=== PATIENT | male | born 2000 | race Caucasian/White ===

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

== ENCOUNTER → 2022-10-22 | Outpatient (CLI) | payer OTHER, SELFPAY ==
--- NOTE | 2022-10-22 11:57 | ECHOD_ITS ---
Reason For Study: VSD Procedure This was a 2D Doppler, Color Flow transthoracic echocardiogram. Exam performed in department. Left Ventricle Normal LV size. Small higher muscular ventricular septal defect measuring 0.3 to 0.3 cm. Unchanged from previous. Left ventricular systolic function is normal. The estimated ejection fraction is 60 %. No regional wall motion abnormalities noted. Right Ventricle Normal RV size. Normal systolic function. Atria Normal left atrium. Normal right atrium. Mitral Valve Normal mitral valve. Tricuspid Valve Normal tricuspid valve. Mild tricuspid valve insufficiency. Pulmonary artery systolic pressure is 20 mmHg. Aortic Valve Normal aortic valve. Trisinus/trileaflet aortic valve. Pulmonic Valve Normal pulmonic valve. Great Vessels Normal aortic root. The pulmonary artery is normal size. Normal inferior vena cava. Pericardium/Pleural No pericardial effusion. MMode/2D Measurements & Calculations LVIDd: 5.5 cm IVSd: 1.1 cm Ao root diam: 3.0 cm LVIDs: 3.9 cm LVPWd: 1.1 cm LA dimension: 4.5 cm RVDd: 3.9 cm FS: 29.1 % LAV(MOD-bp): 58.1 ml LVAd ap4: 40.4 cm2 SV(MOD-sp4): 79.4 ml LAV(MOD-bp) Indexed: 26.2 ml/m2 LVLd ap4: 8.8 cm LAV(MOD-sp2): 56.0 ml EDV(MOD-sp4): 149.2 ml LAV(MOD-sp4): 61.2 ml EDV(sp4-el): 157.0 ml LVAs ap4: 24.3 cm2 LVLs ap4: 7.0 cm ESV(MOD-sp4): 69.8 ml ESV(sp4-el): 71.6 ml EF(MOD-sp4): 53.2 % EF(sp4-el): 54.4 % SV(sp4-el): 85.4 ml LA A4 area: 20.6 cm2 RA A4 area: 17.9 cm2 Time Measurements MV dec time: 0.20 sec Doppler Measurements & Calculations MV E max enrike: 71.3 cm/sec Lat Peak E' Enrike: 22.2 cm/sec Med Peak E' Enrike: 11.6 cm/sec MV A max enrike: 61.4 cm/sec E/E' lat: 3.2 E/E' med: 6.1 MV E/A: 1.2 MV V2 max: 79.1 cm/sec MV P1/2t max enrike: 79.1 cm/sec Ao V2 max: 147.4 cm/sec MV max P.5 mmHg MV P1/2t: 68.5 msec Ao max P.7 mmHg MV V2 mean: 43.2 cm/sec Ao V2 mean: 101.7 cm/sec MV mean P.88 mmHg MV dec slope: 337.9 cm/sec2 Ao mean P.7 mmHg MV V2 VTI: 26.8 cm MVA(P1/2t): 3.2 cm2 Ao V2 VTI: 33.0 cm AV (velocity ratio): 0.78 LV V1 max: 128.0 cm/sec PA V2 max: 204.0 cm/sec TR max enrike: 201.4 cm/sec LV V1 max P.6 mmHg PA V2 mean: 118.0 cm/sec TR max P.2 mmHg LV V1 mean P.0 mmHg PA V2 VTI: 35.0 cm LV V1 mean: 95.6 cm/sec LV V1 VTI: 25.6 cm ECHO/Echo Complete Interpretation Summary Normal LV size. Left ventricular systolic function is normal. The estimated ejection fraction is 60 %. Small higher muscular ventricular septal defect measuring 0.3 to 0.3 cm. Unchan ged from previous. Pulmonary artery systolic pressure is 20 mmHg. Ordering Physician: Osei Vincent Referring Physician: Osei Vincent Performed By: Chema Graham RCS
== END | disposition home or self-care (01) ==
LOC: CVS 11:56
PROVIDERS: PCP Pediatrics; Referring Provider Nurse Practitioner Family; Visit Provider Nurse Practitioner Family
DX: Q21.0 Ventricular septal defect (principal)
CPT/HCPCS: 93306

== ENCOUNTER → 2024-12-30 | Outpatient (CLI) | payer OTHER, SELFPAY ==
[2024-12-30 11:13] LABS: Magnesium 2.1 mg/dL (1.5-2.2)
[2025-01-06 13:08] LABS: Dopamine, Pl 19.5 pg/mL (0.0-36.7); Epinephrine, Pl 52.1 pg/mL (0.0-55.4); Norepinephrine, Pl 357 pg/mL (115-524)
== END | disposition home or self-care (01) ==
LOC: LAB 09:58
PROVIDERS: PCP Nurse Practitioner Adult Health; Referring Provider Nurse Practitioner Family; Visit Provider Nurse Practitioner Family
DX: Q21.0 Ventricular septal defect (principal); R07.9 Chest pain, unspecified; R42 Dizziness and giddiness
CPT/HCPCS: 36415; 82088; 82384; 83036; 83735; 84244; 84439; 84443

== ENCOUNTER → 2025-01-02 | Outpatient (CLI) | payer OTHER, SELFPAY ==
--- OUTSIDE RECORDS SUMMARY | 2025-01-02 08:45 | XMS RPT_ITS | CCD ---
Author Organization [facility] Care Team Providers Care Dot Net Developer Name Role Phone Maicol Park MD Unavailable Cas Mendiola MD Primary Care Provider [phone] Cas Mendiola Primary Care Provider Dr. Beau Vicente Attending Provider [phone] Roof HEALTH SAFETY ENGINEER, HEALTH SAFETY ENGINEER-C Cas Zafar Attending Provider Marisol Covington Attending Unavailable Cas Mendiola Referring Unavailable Cas Mendiola Primary Care Unavailable Cas Mendiola Primary Care Unavailable Roof HEALTH SAFETY ENGINEER, Cas Zafar Attending Unavailable Cas Mendiola Primary Care Unavailable Beau Vicente Attending Unavailable Carlton HEALTH SAFETY ENGINEERCas Referring Unavailable Roof HEALTH SAFETY ENGINEER, aCs Zafar Attending Unavailable Cas Mendiola Primary Care Unavailable Cas Mendiola MD Primary Care Provider [phone] Navid FIELDS.Britton LOO Primary Care Provider BRITTON CAM Primary Care Unavailable SELF Referring Unavailable BRITTON CAM Referring Unavailable BRITTON CAM Primary Care Unavailable CAS MENDIOLA Attending Unavailable CAS MENDIOLA Primary Care Unavailable Cas Mendiola MD Primary Care Provider [phone] Cas Mendiola MD Primary Care Provider Dr. Cas Mendiola MD Referring Provider Roof HEALTH SAFETY ENGINEER-C, Cas Zafar Attending Provider [phone] BRITTON CAM Primary Care Unavailable LAMBERTO BERRIOS Attending Unavailable Allergies Allergy Classification Reported Allergen(s) Allergy Type Date of Onset Reaction(s) Facility (1 source) penicillin Drug Allergy 8 [facility] Work Phone: (1 source) PLANT POLLENS; Translations: [PLANT POLLENS] allergy to substance 8 hay fever [facility] Work Phone: (5 sources) Penicillins; Translations: [PENICILLINS] Propensity to adverse reactions 4 [facility] Work Phone: (2 sources) Penicillins Allergy to substance 2 [facility] (1 source) Penicillins Drug allergy (disorder) 3 [facility] (3 sources) Penicillins Propensity to adverse reactions 4 [facility] Work Phone: (2 sources) Penicillins Propensity to adverse reactions 4 [facility] Work Phone: Medications Current Medications Medication Drug Class(es) Dates Sig (Normalized) Sig (Original) cefdinir 300 mg oral capsule (2 sources) Cephalosporin Antibacterial Start: 10-19-2021 End: 10-29-2021 take 1 capsule by mouth twice daily cefdinir (OMNICEF) 300 mg capsule Indications: Acute maxillary sinusitis, recurrence not specified Take 1 capsule by mouth twice daily for 10 days. 20 capsule 0 10/19/2021 10/29/2021 Active Comment on above: Take 1 capsule by mo ut twice daily for 10 days. doxycycline hyclate 100 mg oral tablet (1 source) Tetracycline-class Drug Start: 02-01-2024 End: 02-08-2024 take 1 tablet by mouth twice daily doxycycline (VIBRA-TABS) 100 mg tablet Take 1 tablet by mouth two times a day for 7 days. 14 tablet 02/01/2024 02/08/2024 Active FLUoxetine 20 mg oral capsule (5 sources) Serotonin Reuptake Inhibitor Start: 12-14-2022 End: 12-30-2024 take 1 capsule by mouth once FLUoxetine (PROZAC) 20 mg capsule Indications: Generalized anxiety disorder Take 1 capsule by mouth every afternoon. 90 capsule 3 05/29/2023 Active Comment on above: Take 1 capsule by mo uth every afternoon. [place] (Nk) (1 source) Start: 12-30-2024 [place] (Nk) Active December 30, 2024 12:00am permethrin 50 mg/ml topical cream (1 source) Pyrethroid Start: 03-22-2023 End: 04-05-2023 permethrin (ELIMITE) 5 % cream Indications: Scabies Apply to the body once at bedtime and then rinse off/shower in the AM. Repeat a single treatment again in 2 weeks. 60 g 1 03/22/2023 04/05/2023 Active Comment on above: Apply to the body on ce at bedtime and then rinse off/shower in the AM. Repeat a single treatment again in 2 weeks. Completed/Discontinued Medications Medication Drug Class(es) Dates Sig (Normalized) Sig (Original) azelastine hydrochloride 0.137 mg/actuat / fluticasone propionate 0.05 mg/actuat metered dose nasal spray (2 sources) Corticosteroid, Histamine-1 Receptor Antagonist Start: 10-19-2021 take 1 spray(s) nasal route twice daily azelastine-flutic asone 137-50 mcg/spray spry Indications: Seasonal allergic rhinitis due to pollen Use 1 [place] in each nostril twice daily. 23 g 5 10/19/2021 Active Comment on above: Use 1 [place] in each nostril twice daily. brompheniramine maleate 0.4 mg/ml / dextromethorphan hydrobromide 2 mg/ml / pseudoephedrine hydrochloride 6 mg/ml oral solution (4 sources) alpha-Adrenergic Agonist, Uncompetitive B-xvlqdy-V-aspartat e Receptor Antagonist, Sigma-1 Agonist Start: 06-29-2018 End: 05-16-2022 take 5-10 mL by mouth every six hours as needed Brompheniramine-P seudoeph-DM (BROMFED DM) 2-30-10 mg/5 mL syrup Take 5-10 ml po q6h prn 120 mL 06/29/2018 05/16/2022 Discontinued Comment on above: Take 5-10 ml po q6h prn escitalopram 10 mg oral tablet (7 sources) Serotonin Reuptake Inhibitor Start: 11-16-2021 End: 03-22-2023 take 1 tablet by mouth once daily Escitalopram Oxalate 10 mg tablet Discontinued 10 mg PO DAILY November 16, 2021 12:00am December 14, 2022 11:35am Start: 07-11-2021 End: 10-19-2021 take 1 tablet by mouth once daily escitalopram oxalate (LEXAPRO) 10 mg tablet Indications: Anxious mood Take 1 tablet by mouth once daily. 90 tablet 2 10/19/2021 Active Comment on above: Take 1 tablet by seth th once daily. fluticasone propionate 0.05 mg/actuat metered dose nasal spray (7 sources) Corticosteroid Start: End: take 1 spray(s) nasal route once daily fluticasone (FLONASE ALLERGY RELIEF) 50 mcg/actuation nasal spray Use 1 [place] in each nostril once daily. 3 Each 3 08/25/2022 03/22/2023 Discontinued (Discontinued by another Health Care Provider) Start: 09-20-2021 End: 10-19-2021 take 1 spray(s) nasal route once daily fluticasone (FLONASE ALLERGY RELIEF) 50 mcg/actuation nasal spray Use 1 [place] in each nostril once daily. 3 Each 3 09/20/2021 10/19/2021 Discontinued (Course of therapy completed) Start: 11-16-2020 End: 12-30-2024 Fluticasone Propionate 50 mcg/actuation spray,suspension Discontinued 1 NMA INTRANASAL TWICE A DAY November 16, 2020 12:00am December 30, 2024 8:51am Start: 11-16-2020 Fluticasone Pr opionate Active 1 SPRAY INTRANASAL TWICE A DAY November 16, 2020 12:00am Start: 11-07-2020 End: 08-29-2021 take 1 spray(s) nasal route once daily fluticasone (FLONASE ALLERGY RELIEF) 50 mcg/actuation nasal spray Use 1 [place] in each nostril once daily. 3 Bottle 2 11/07/2020 08/29/2021 Discontinued Start: 10-13-2019 End: 11-07-2020 Fluticasone Furoate (FLONASE SENSIMIST) 27.5 mcg/actuation nasal spray Indications: Seasonal allergic rhinitis due to pollen 2 sprays to each nostril once daily for 1 month then decrease to one spray to each nostril. Treat for 3 months 10/13/2019 11/07/2020 Discontinued Comment on above: Use 1 [place] in each nostril once daily. ketotifen 0.25 mg/ml ophthalmic solution (4 sources) Histamine-1 Receptor Inhibitor Start: 0 End: 3 ketotifen fumarate (ZADITOR) 0.025 % (0.035 %) ophthalmic solution 1 drop to the affected eye every 12 hours as needed for pruritus 10/13/2019 05/16/2022 Discontinued Comment on above: 1 drop to the affect ed eye every 12 hours as needed for pruritus 12 hr loratadine 5 mg / pseudoephedrine sulfate 120 mg extended release oral tablet (8 sources) alpha-Adrenergic Agonist Start: 3 End: 3 take 1 tablet by mouth twice daily loratadine-pseudoeph edrine ER (CLARITIN-D 12 HOUR) 5-120 mg per tablet Take 1 tablet by mouth twice daily. 180 tablet 0 08/25/2022 03/22/2023 Discontinued (Discontinued by another Health Care Provider) Start: 09-20-2021 take 1 tablet by seth th twice daily loratadine-pseudoephedrine ER (CLARITIN- D 12 HOUR) 5-120 mg per tablet Take 1 tablet by mouth twice daily. 180 tablet 3 09/20/2021 Active Start: 11-16-2020 End: 12-30-2024 Loratadine-Pseudoephedrine ( Allergy Relief D12) 5-120 mg tablet extended release 12 hr Discontinued 1 {tbl} PO DAILY November 16, 2020 12:00am December 30, 2024 8:51am Start: 11-07-2020 End: 08-29-2021 take 1 tablet by mouth twice daily loratadine-pseudoephedrine ER (CLARITIN- D 12 HOUR) 5-120 mg per tablet Take 1 tablet by mouth twice daily. 180 tablet 3 11/07/2020 08/29/2021 Discontinued End: 11-07-2020 loratadine/pseudoephedrine ( CLARITIN-D 12 HOUR ORAL) Take by mouth once daily. 11/07/2020 Discontinued Comment on above: Take 1 tablet by seth th twice daily. nitroglycerin 0.02 mg/mg topical ointment (4 sources) Nitrate Vasodilator Start: 02-18-2014 End: 05-16-2022 nitroglycerin (NITRO-BID) 2 % ointment Indications: Raynaud's syndrome Use as directed. 30 g 0 02/18/2014 05/16/2022 Discontinued Comment on above: Use as directed. Problems Active Problems Problem Classification Problem Date Documented Da te Episodic/Chronic Administrative/social admission (1 source) Person with feared health complaint in whom no diagnosis is made; Translations: [Feared complaint without diagnosis] Onset: 12-28-2024 Episodic Anxiety disorders (4 sources) Anxiety; Translations: [Anxiety disorder, unspecified] Onset: 05-29-2023 Chronic Cardiac and circulatory congenital anomalies (12 sources) Ventricular septal defect; Translations: [Ventricular septal defect] Onset: 02-14-2005 02-14-2005 Chronic Conditions associated with dizziness or vertigo (2 sources) Dizziness; Translations: [Dizziness and giddiness] 12-30-2024 Episodic Diseases of mouth; excluding dental (1 source) Dry mouth, unspecified; Translations: [Dry mouth] Onset: 12-28-2024 Episodic Immunizations and screening for infectious disease (1 source) Patient encounter status; Translations: [Encounter for immunization] 03-24-2023 Episodic Nonspecific chest pain (2 sources) Chest pain; Translations: [Chest pain, unspecified] 12-30-2024 Episodic Other circulatory disease (8 sources) Raynaud's disease; Translations: [Raynaud's syndrome without gangrene] Onset: 09-30-2003 09-30-2003 Chronic Other infections; including parasitic (1 source) Infestation by Sarcoptes scabiei rakesh hominis; Translations: [Scabies] 03-24-2023 Episodic Other inflammatory condition of skin (8 sources) Psoriasis; Translations: [Psoriasis, unspecified] Onset: 12-04-2017 12-04-2017 Chronic Other upper respiratory disease (2 sources) Allergic rhinitis due to pollen; Translations: [Allergic rhinitis due to pollen] Chronic Other upper respiratory infections (2 sources) Acute maxillary sinusitis; Translations: [Acute maxillary sinusitis, unspecified] Episodic Sprains and strains (2 sources) Sprain of medial collateral ligament of knee; Translations: [Rupture of ulnar collateral ligament of thumb] Onset: 01-27-2018 01-27-2018 Episodic Past or Other Problems Problem Classification Problem Date Documented Date Episodic/Chronic Fracture of upper limb (8 sources) Closed Finn's fracture; Translations: [Finn's fracture, right hand, initial encounter for closed fracture] Onset: 02-09-2020 02-09-2020 Episodic Other bone disease and musculoskeletal deformities (4 sources) 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; Translations: [Juvenile osteochondrosis of tarsus, left ankle] Onset: 09-03-2015 Resolved: 12-04-2017 12-04-2017 Chronic Other non-traumatic joint disorders (8 sources) Decreased range of thumb movement; Translations: [Stiffness of right hand, not elsewhere classified] Onset: 02-09-2020 02-09-2020 Episodic Other screening for suspected conditions (not mental disorders or infectious disease) (3 sources) Encounter for screening for diseases of the blood and blood-forming organs and certain disorders involving the immune mechanism; Translations: [Encounter for screening for diabetes mellitus] Onset: 05-31-2023 Episodic Unclassified (1 source) Problem Results Test Name Value Interpretation Reference Range Facility HbA1c (Bld)Ordered By: Crystal Olivarez on 12-30-2024 HbA1c (Bld) [Mass fraction] 5.3 % NINF - 5.6 % [facility] CBC W Auto Differential pane l (Bld)on 12-28-2024 Basophils (Bld) [#/Vol] 0.03 10*3/uL Normal <0.11 [facility] Comment on above: Order Comment: Speci janis Type: BLOOD SPECIMEN Ordering Facility: [facility] Address: [address] [place] [address] Performed By: #### 5 7021-8 #### [facility] CLIA [id number] [address] [place] [address] [place] Basophils/100 WBC (Bld) 0.5 % Normal [facility] Comment on above: Order Comment: Brenti janis Type: BLOOD SPECIMEN Ordering Facility: [facility] Address: [address] [place] [address] Performed By: #### 5 7021-8 #### [facility] CLIA [id number] [address] [place] [address] [place] Differential cell count method Nom (Bld) Auto Normal [facility] Comment on above: Order Comment: Speci men Type: BLOOD SPECIMEN Ordering Facility: [facility] Address: [address] [place] [address] Performed By: #### 5 7021-8 #### [facility] CLIA [id number] [address] [place] [address] [place] Eosinophils (Bld) [#/Vol] 0.04 10*3/uL Normal <0.46 [facility] Comment on above: Order Comment: Speci men Type: BLOOD SPECIMEN Ordering Facility: [facility] Address: [address] [place] [address] Performed By: #### 5 7021-8 #### [facility] CLIA [id number] [address] [place] [address] [place] Eosinophils/100 WBC (Bld) 0.6 % Normal [facility] Comment on above: Order Comment: Speci men Type: BLOOD SPECIMEN Ordering Facility: [facility] Address: [address] [place] [address] Performed By: #### 5 7021-8 #### [facility] CLIA [id number] [address] [place] [address] [place] Erythrocyte distribution width (RBC) [Ratio] 11.8 % Normal 11.5-15.0 [facility] Comment on above: Order Comment: Speci men Type: BLOOD SPECIMEN Ordering Facility: [facility] Address: [address] [place] [address] Performed By: #### 5 7021-8 #### [facility] CLIA [id number] [address] [place] [address] [place] Hematocrit (Bld) [Volume fraction] 41.1 % Normal 39.0-51.0 [facility] Comment on above: Order Comment: Speci men Type: BLOOD SPECIMEN Ordering Facility: [facility] Address: [address] [place] [address] Performed By: #### 5 7021-8 #### [facility] CLIA [id number] [address] [place] [address] [place] Hemoglobin (Bld) [Mass/Vol] 14.3 g/dL Normal 13.0-17.0 [facility] Comment on above: Order Comment: Speci men Type: BLOOD SPECIMEN Ordering Facility: [facility] Address: [address] [place] [address] Performed By: #### 5 7021-8 #### [facility] CLIA [id number] [address] [place] [address] [place] Immature granulocytes (Bld) [#/Vol] 10*3/uL Normal <0.10 [facility] Comment on above: Order Comment: Speci men Type: BLOOD SPECIMEN Ordering Facility: [facility] Address: [address] [place] [address] Performed By: #### 5 7021-8 #### [facility] CLIA [id number] [address] [place] [address] [place] Immature granulocytes/100 WBC (Bld) 0.2 % Normal [facility] Comment on above: Order Comment: Speci men Type: BLOOD SPECIMEN Ordering Facility: [facility] Address: [address] [place] [address] Performed By: #### 5 7021-8 #### [facility] CLIA [id number] [address] [place] [address] [place] Lymphocytes (Bld) [#/Vol] 2.01 10*3/uL Normal 1.00-4.00 [facility] Comment on above: Order Comment: Speci men Type: BLOOD SPECIMEN Ordering Facility: [facility] Address: [address] [place] [address] Performed By: #### 5 7021-8 #### [facility] CLIA [id number] [address] [place] [address] [place] Lymphocytes/100 WBC (Bld) 30.5 % Normal [facility] Comment on above: Order Comment: Speci men Type: BLOOD SPECIMEN Ordering Facility: [facility] Address: [address] [place] [address] Performed By: #### 5 7021-8 #### [facility] CLIA [id number] [address] [place] [address] [place] MCH (RBC) [Entitic mass] 30.8 pg Normal 26.0-34.0 [facility] Comment on above: Order Comment: Speci men Type: BLOOD SPECIMEN Ordering Facility: [facility] Address: [address] [place] [address] Performed By: #### 5 7021-8 #### [facility] CLIA [id number] [address] [place] [address] [place] MCHC (RBC) [Mass/Vol] 34.8 g/dL Normal 30.5-36.0 [facility] Comment on above: Order Comment: Speci men Type: BLOOD SPECIMEN Ordering Facility: [facility] Address: [address] [place] [address] Performed By: #### 5 7021-8 #### [facility] CLIA [id number] [address] [place] [address] [place] MCV (RBC) [Entitic vol] 88.4 fL Normal 80.0-100.0 [facility] Comment on above: Order Comment: Speci men Type: BLOOD SPECIMEN Ordering Facility: [facility] Address: [address] [place] [address] Performed By: #### 5 7021-8 #### [facility] CLIA [id number] [address] [place] [address] [place] Monocytes (Bld) [#/Vol] 0.47 10*3/uL Normal <0.87 [facility] Comment on above: Order Comment: Speci men Type: BLOOD SPECIMEN Ordering Facility: [facility] Address: [address] [place] [address] Performed By: #### 5 7021-8 #### [facility] CLIA [id number] [address] [place] [address] [place] Monocytes/100 WBC (Bld) 7.1 % Normal [facility] Comment on above: Order Comment: Speci men Type: BLOOD SPECIMEN Ordering Facility: [facility] Address: [address] [place] [address] Performed By: #### 5 7021-8 #### [facility] CLIA [id number] [address] [place], [place] [address] [place] Neutrophils (Bld) [#/Vol] 4.02 10*3/uL Normal 1.45-7.50 [facility] Comment on above: Order Comment: Speci men Type: BLOOD SPECIMEN Ordering Facility: [facility] Address: [address] [place] [address] Performed By: #### 5 7021-8 #### [facility] CLIA [id number] [address] [place] [address] [place] Neutrophils/100 WBC (Bld) 61.1 % Normal [facility] Comment on above: Order Comment: Speci men Type: BLOOD SPECIMEN Ordering Facility: [facility] Address: [address] [place] [address] Performed By: #### 5 7021-8 #### [facility] CLIA [id number] [address] [place] [address] [place] Nucleated RBC (Bld) [#/Vol] 10*3/uL Normal <0.01 [facility] Comment on above: Order Comment: Speci men Type: BLOOD SPECIMEN Ordering Facility: [facility] Address: [address] [place] [address] Performed By: #### 5 7021-8 #### [facility] CLIA [id number] [address] [place] [address] [place] Nucleated RBC/100 WBC (Bld) [Ratio] 0.0 /100 WBC Normal [facility] Comment on above: Order Comment: Speci men Type: BLOOD SPECIMEN Ordering Facility: [facility] Address: [address] [place] [address] Performed By: #### 5 7021-8 #### [facility] CLIA [id number] [address] [place] [address] [place] Platelet mean volume (Bld) [Entitic vol] 9.8 fL Normal 9.0-12.7 [facility] Comment on above: Order Comment: Speci men Type: BLOOD SPECIMEN Ordering Facility: [facility] Address: [address] [place] [address] Performed By: #### 5 7021-8 #### [facility] CLIA [id number] [address] [place] [address] [place] Platelets (Bld) [#/Vol] 194 10*3/uL Normal 150-400 [facility] Comment on above: Order Comment: Speci men Type: BLOOD SPECIMEN Ordering Facility: [facility] Address: [address] [place] [address] Performed By: #### 5 7021-8 #### [facility] CLIA [id number] [address] [place] [address] [place] RBC (Bld) [#/Vol] 4.65 10*6/uL Normal 4.20-6.00 [facility] Comment on above: Order Comment: Speci men Type: BLOOD SPECIMEN Ordering Facility: [facility] Address: [address] [place] [address] Performed By: #### 5 7021-8 #### [facility] CLIA [id number] [address] [place] [address] [place] WBC (Bld) [#/Vol] 6.58 10*3/uL Normal 3.70-11.00 [facility] Comment on above: Order Comment: Speci men Type: BLOOD SPECIMEN Ordering Facility: [facility] Address: [address] [place] [address] Performed By: #### 5 7021-8 #### [facility] CLIA [id number] [address] [place] [address] [place] Comprehensive metabolic 2000 panelon 12-28-2024 Albumin [Mass/Vol] 4.8 g/dL Normal 3.9-4.9 [facility] Comment on above: Order Comment: Speci men Type: BLOOD SPECIMEN Ordering Facility: [facility] Address: [address] [place] [address] Performed By: #### 2 4323-8 #### [facility] CLIA [id number] [address] [place] [address] [place] ALP [Catalytic activity/Vol] 90 U/L Normal 38-113 [facility] Comment on above: Order Comment: Speci men Type: BLOOD SPECIMEN Ordering Facility: [facility] Address: [address] [place] [address] Performed By: #### 2 4323-8 #### [facility] CLIA [id number] [address] [place] [address] [place] ALT [Catalytic activity/Vol] 15 U/L Normal 10-54 [facility] Comment on above: Order Comment: Speci men Type: BLOOD SPECIMEN Ordering Facility: [facility] Address: [address] [place] [address] Performed By: #### 2 4323-8 #### [facility] CLIA [id number] [address] [place] [address] [place] Anion gap [Moles/Vol] 9 mmol/L Normal 8-15 [facility] Comment on above: Order Comment: Speci men Type: BLOOD SPECIMEN Ordering Facility: [facility] Address: [address] [place] [address] Performed By: #### 2 4323-8 #### [facility] CLIA [id number] [address] [place] [address] [place] AST [Catalytic activity/Vol] 20 U/L Normal 14-40 [facility] Comment on above: Order Comment: Speci men Type: BLOOD SPECIMEN Ordering Facility: [facility] Address: [address] [place] [address] Performed By: #### 2 4323-8 #### [facility] CLIA [id number] [address] [place] [address] [place] Bilirubin [Mass/Vol] 0.9 mg/dL Normal 0.2-1.3 [facility] Comment on above: Order Comment: Speci men Type: BLOOD SPECIMEN Ordering Facility: [facility] Address: [address] [place] [address] Performed By: #### 2 4323-8 #### [facility] CLIA [id number] [address] [place] [address] [place] Calcium [Mass/Vol] 9.5 mg/dL Normal 8.5-10.2 [facility] Comment on above: Order Comment: Speci men Type: BLOOD SPECIMEN [facility] [facility] Address: [address] [place] [address] Performed By: #### 2 4323-8 #### [facility] CLIA [id number] [address] [place] [address] [place] Chloride [Moles/Vol] 102 mmol/L Normal 98-107 [facility] Comment on above: Order Comment: Speci men Type: BLOOD SPECIMEN Ordering Facility: [facility] Address: [address] [place] [address] Performed By: #### 2 4323-8 #### [facility] CLIA [id number] [address] [place] [address] [place] CO2 [Moles/Vol] 27 mmol/L Normal 22-30 [facility] Comment on above: Order Comment: Speci men Type: BLOOD SPECIMEN Ordering Facility: [facility] Address: [address] [place] [address] Performed By: #### 2 4323-8 #### [facility] CLIA [id number] [address] [place] [address] [place] Creatinine [Mass/Vol] 0.96 mg/dL Normal 0.73-1.22 [facility] Comment on above: Order Comment: Speci men Type: BLOOD SPECIMEN Ordering Facility: [facility] Address: [address] [place] [address] Performed By: #### 2 4323-8 #### [facility] CLIA [id number] [address] [place] [address] [place] eGFRcr SerPlBld CKD-EPI 2020 114 mL/min/1.73m??? Normal >=60 [facility] Comment on above: Order Comment: Speci men Type: BLOOD SPECIMEN Ordering Facility: [facility] Address: [address] [place] [address] Result Comment: Kirstin mated Glomerular Filtration Rate (eGFR) is calculated using the 2020 CKD-EPI creatinine equation. This equation utilizes serum creatinine, sex, and age as parameters. The creatinine assay has traceable calibration to isotope dilution-mass spectrometry. Refer to KDIGO guidelines for clinical interpretation. In patients with unstable renal function, e.g. those with acute kidney injury, the eGFR may not accurately reflect actual GFR. Performed By: #### 2 4323-8 #### [facility] CLIA [id number] [address] [place], [place] [address] [place] Glucose [Mass/Vol] 99 mg/dL Normal 74-99 [facility] Comment on above: Order Comment: Barbara bruce Type: BLOOD SPECIMEN Ordering Facility: [facility] Address: [address] [place] [address] Result Comment: The [place] Diabetes Association (ADA) provides guidance for cutoff values for fasting glucose and random glucose. The ADA defines fasting as no caloric intake for at least 8 hours. Fasting plasma glucose results between 100 to 125 mg/dL indicate increased risk for diabetes (prediabetes). Fasting plasma glucose results greater than or equal to 126 mg/dL meet the criteria for diagnosis of diabetes. In the absence of unequivocal hyperglycemia, results should be confirmed by repeat testing. In a patient with classic symptoms of hyperglycemia or hyperglycemic crisis, random plasma glucose results greater than or equal to 200 mg/dL meet the criteria for diagnosis of diabetes. Reference: Standards of Medical Care in Diabetes 2016, [place] Diabetes Association. Diabetes Care. 2016.39(Suppl 1). Performed By: #### 2 4323-8 #### [facility] CLIA [id number] [address] [place] [address] [place] Potassium [Moles/Vol] 4.2 mmol/L Normal 3.7-5.1 [facility] Comment on above: Order Comment: Barbara bruce Type: BLOOD SPECIMEN Ordering Facility: [facility] Address: [address] [place] [address] Performed By: #### 2 4323-8 #### [facility] CLIA [id number] [address] [place], [place] [address] [place] Protein [Mass/Vol] 7.7 g/dL Normal 6.3-8.0 [facility] Comment on above: Order Comment: Barbara bruce Type: BLOOD SPECIMEN Ordering Facility: [facility] Address: [address] [place] [address] Performed By: #### 2 4323-8 #### [facility] CLIA [id number] [address] [place] [address] STATES OF [facility] Sodium [Moles/Vol] 138 mmol/L Normal 136-144 [facility] Comment on above: Order Comment: Speci men Type: BLOOD SPECIMEN Ordering Facility: [facility] Address: [address] [place] [address] Performed By: #### 2 4323-8 #### [facility] CLIA [id number] [address] [place] [address] [place] Urea nitrogen [Mass/Vol] 13 mg/dL Normal 9-24 [facility] Comment on above: Order Comment: Speci men Type: BLOOD SPECIMEN Ordering Facility: [facility] Address: [address] [place] [address] Performed By: #### 2 4323-8 #### [facility] CLIA [id number] [address] [place] [address] ED NOTEon 12-28-2024 ED NOTE HNO ID: [id number] Author: REHAN DREW PCNA Service: ? Author Type: Patient Care Manager English Type: ED Notes Filed: 12/29/2024 10:55 Note Text: Emergency Services: ED Call Back Questionnaire SERVICE DATE: 12/28/2024 Are you feeling better? No Any questions about discharge instructions and follow-up care? No Were you able to make a follow up appointment? Yes Do you have any further questions? No Is there anything that we could have done differently to improve your ED visit? No SIGNATURE: DAVE Hanna PATIENT NAME: Donell Sexton DATE: December 29, 2024 TIME: 10:[address] [facility] ED NOTE HNO ID: [id number] Author: STANISLAW SYED RN Service: ? Author Type: Registered Nurse Type: ED Notes Filed: 12/28/2024 06:43 Note Text: Called for patient from lobby, as per ed registration pt using restroom. [facility] ED PROV NOTEon 12-28-2024 ED PROV NOTE HNO ID: [id number] Author: LAMBERTO BERRIOS MD Service: ? Author Type: Physician Type: ED Provider Notes Filed: 12/28/2024 08:37 Note Text: ED Provider Note Patient Name: Donell Sexton : 2000 SERVICE DATE: 12/28/24 History Patient presents with: hand complaint Dry Mouth: C/O my hands feel tight and my mouth is dry I think I might have diabetes There is a very nice 23-year-old male who presents today with complaints of dry mouth shakiness and worried that he might have diabetes. He says this runs in his family. He said the symptoms for several months. Tells me that he is lost about 50 pounds over the last year without trying to. No other complaints right now. He has no fevers or chills. No chest pain. History of a VSD as a child with a lifelong heart murmur. No other complaints right now. Denies fevers or chills. Denies vomiting or diarrhea bright red blood per rectum or melena. Review of systems otherwise negative. PAST MEDICAL HISTORY Diagnosis Date - Concussion 2014 - Generalized anxiety disorder - Murmur - Raynaud's disease - Ventricular septal defect Dr. Mcbride PAST SURGICAL HISTORY Procedure Laterality Date - PAST SURGICAL HISTORY OF Right 01/14/2020 thumb - PAST SURGICAL HISTORY OF Right 08/22/2020 Right Thumb FAMILY HISTORY Problem Relation Age of Onset - other (bipolar type 5) Mother - Hypertension Father - Hypertension Maternal Grandfather - Diabetes Maternal Grandfather mggm - other (heart disease) Maternal Grandfather paternal side - Diabetes Maternal Uncle - Diabetes Maternal great-grandmother Social History[1] ALLERGIES Allergen Reactions - Penicillins Hives Review of Systems All other systems reviewed and are negative. Physical Exam Vitals [12/28/24 0652] BP Pulse Temp Temp src Resp SpO2 Weight Height 165/102 64 36.8 ?C (98.2 ?F) Oral 20 99 % 78.1 kg (172 lb 2.9 oz) 1.829 m (6') Physical Exam Vitals and nursing note reviewed. Constitutional: General: He is not in acute distress. Appearance: Normal appearance. He is not ill-appearing. HENT: Head: Normocephalic and atraumatic. Nose: Nose normal. Mouth/Throat: Mouth: Mucous membranes are moist. Eyes: Pupils: Pupils are equal, round, and reactive to light. Cardiovascular: Rate and Rhythm: Normal rate and regular rhythm. Heart sounds: Murmur heard. Pulmonary: Effort: Pulmonary effort is normal. Breath sounds: Normal breath sounds. Abdominal: General: Bowel sounds are normal. Palpations: Abdomen is soft. Tenderness: There is no abdominal tenderness. There is no guarding. Musculoskeletal: General: Normal range of motion. Cervical back: Normal range of motion and neck supple. Skin: General: Skin is warm and dry. Capillary Refill: Capillary refill takes less than 2 seconds. Neurological: General: No focal deficit present. Mental Status: He is alert. Psychiatric: Mood and Affect: Mood normal. Diagnostic Testing ED Labs Ordered and Reviewed GLUCOSE, BLOOD (POC) - Abnormal; Notable for the following components: Result Value Ref Range Glucose, Point of Care 105 (*) 74 - 99 mg/dL All other components within normal limits COMPREHENSIVE METABOLIC PANEL COMPLETE BLOOD COUNT AND DIFFERENTIAL Procedures ED Course / Clinical Impression ED Course as of 12/28/24 0838 Lamberto Berrios's Documentation Mon Dec 28, 2024 0836 Glucose, Point of Care(!): 105 Clinical Impressions as of 12/28/24 0838 Dry mouth Feared complaint without diagnosis MDM / Disposition / Plan Patient denies using drugs or alcohol. He is well-appearing at this time. He did ask that we check some blood work on him. Initial fingerstick blood glucose was 105. Will check a CBC and base metabolic panel as long as these look okay the patient certainly is well clinically and I do not think that there are any acute emergent medical conditions. Laboratory studies are unremarkable. He is discharged home with reassurance rest fluids. Not sure what the cause of his symptoms were and it may be anxiety related. Certainly there are no metabolic abnormalities or any indication that there is an acute emergent condition. He can follow-up with his family doctor as needed and return if problems of any kind. SIGNATURE: Lamberto Berrios MD, LAMBERTO GARCIA 12/28/24 0837 [1] Social History Tobacco Use - Smoking status: Never - Smokeless tobacco: Never Vaping Use - Vaping status: Never Used Substance and Sexual Activity - Alcohol use: Yes Comment: social - Drug use: No - Sexual activity: Never Normal [facility] 02-01-2024 CNOV Office Visit (UCWSTR ) DONELL SEXTON ([id number]) 2 M Date Time Provider Department 02/01/24 8:15 AM TRUPTI ZUÑIGA [facility] During your visit today, we recorded the following information about you: Temperature Pulse Respiration Blood pressure 97.6 degrees 69/minute 16/minute 128/84 Weight 104.9 kg Trupti Zuñiga PA 02/01/2024 8:20 AM Signed This note was created using Huaat. Subjective Donell Sexton is a 23 year old male. HPI 23-year-old male presents for nasal congestion, sinus pressure, sinus pain. Patient states he has been having sinus symptoms for about 3 weeks. He denies any fevers. No cough. No chest pain or shortness of breath. No sick contacts. States he is concerned it may be a sinus infection. He has been using Claritin and Daniela with minimal improvement. PAST MEDICAL HISTORY Diagnosis Date 2014 Generalized anxiety disorder Murmur Raynaud's disease Ventricular septal defect Dr. Mcbride PAST SURGICAL HISTORY Procedure Laterality Date PAST SURGICAL HISTORY OF Right 01/14/2020 thumb PAST SURGICAL HISTORY OF Right 08/22/2020 Right Thumb ALLERGIES Penicillins MEDICATIONS FLUoxetine (PROZAC) 20 mg capsule Take 1 capsule by mouth every afternoon. doxycycline (VIBRA-TABS) 100 mg tablet Take 1 tablet by mouth two times a day for 7 days. FAMILY HISTORY Problem Relation Age of Onset other (bipolar type 5) Mother Hypertension Father Hypertension Maternal Grandfather Diabetes Maternal Grandfather mggm other (heart disease) Maternal Grandfather paternal side Diabetes Maternal Uncle Diabetes Maternal great-grandmother Social History Tobacco Use Smoking status: Never Smokeless tobacco: Never Vaping Use Vaping status: Never Used Substance Use Topics Alcohol use: Yes Comment: social Drug use: No Review of Systems Constitutional: Negative for chills and fever. HENT: Positive for congestion, sinus pressure and sinus pain. Negative for sore throat. Respiratory: Negative for cough and shortness of breath. Gastrointestinal: Negative for diarrhea and vomiting. Neurological: Positive for headaches. Objective BP 128/84 Pulse 69 Temp 36.4 ?C (97.6 ?F) (Tympanic) Resp 16 Wt 104.9 kg (231 lb 4.2 oz) SpO2 98% BMI 31.36 kg/m? Physical Exam Vitals and nursing note reviewed. Constitutional: General: He is not in acute distress. Appearance: Normal appearance. He is not toxic-appearing. HENT: Right Ear: Tympanic membrane and ear canal normal. Left Ear: Tympanic membrane and ear canal normal. Nose: Mucosal edema present. Right Sinus: Maxillary sinus tenderness and frontal sinus tenderness present. Left Sinus: Maxillary sinus tenderness and frontal sinus tenderness present. Mouth/Throat: Mouth: Mucous membranes are moist. Eyes: Conjunctiva/sclera: Conjunctivae normal. Cardiovascular: Rate and Rhythm: Normal rate and regular rhythm. Pulmonary: Effort: Pulmonary effort is normal. Breath sounds: Normal breath sounds. Skin: General: Skin is warm and dry. Neurological: Mental Status: He is alert. Assessment and Plan ASSESSMENT/PLAN: 1. Acute non-recurrent sinusitis, unspecified location - ICD9: 461.9, ICD10: J01.90 - Will begin treatment with Doxycycline - The patient should also be given OTC decongestants prn for the first 5-7 days of treatment. - Supportive care with plenty of fluids, rest, and analgesia prn. Diagnosis and treatment plan were discussed and questions were answered to the patient's satisfaction. Pt acknowledged understanding of concepts and follow up plan. Specific signs and symptoms that would indicate the need for higher level of care were discussed in detail warranting prompt ER evaluation. JANETTE Shields Referring Provider: SELF [200] Allergies As of Date: 02/01/2024 Noted Allergy Reaction PENICILLINS 09/30/2003 4 - Hives Date Reviewed: 02/01/2024 Reviewed by: Kirstin Sykes LPN - Fully Assessed Reason for Visit: Sinus Problem [99] Cmt: Sinus congestion x 3-4 weeks Primary Visit Diagnosis:Acute non-recurrent sinusitis, unspecified location [J01.90] Order(s):doxycycline (VIBRA-TABS) 100 mg tabletTake 1 tablet by mouth two times a day for 7 days.Disp: 14 tabletRfl: 0 Prescriptions as of 02/01/2024 - doxycycline (VIBRA-TABS) 100 mg tablet Take 1 tablet by mouth two times a day for 7 days. - FLUoxetine (PROZAC) 20 mg capsule Take 1 capsule by mouth every afternoon. Problem List As Of Date 02/01/2024 Noted Resolved RAYNAUD'S SYNDROME [I73.00] 09/30/2003 VENTRICULAR SEPT DEFECT [Q21.0] 02/14/2005 Sever's apophysitis, left [M92.62] 09/03/2015 12/04/2017 Psoriasis [L40.9] 12/04/2017 Closed Finn's fracture of right thumb [S62.2*02/09/2020 Decreased range of motion of right thumb [M25.6*02/09/2020 Generalized anxiety disorder [F41.1] (more content not included)... Normal [facility] CBC panel Auto (Bld)on 05-31 Erythrocyte distribution width (RBC) [Ratio] 11.9 % Normal 11.5-15.0 [facility] Comment on above: Order Comment: Speci men Type: BLOOD SPECIMEN Ordering Facility: [facility] Address: [address] [place] [address] Performed By: #### 5 8410-2 #### [facility] CLIA [id number] [address] [place] [address] [place] Hematocrit (Bld) [Volume fraction] 43.0 % Normal 39.0-51.0 [facility] Comment on above: Order Comment: Speci men Type: BLOOD SPECIMEN Ordering Facility: [facility] Address: [address] [place] [address] Performed By: #### 5 8410-2 #### [facility] CLIA [id number] [address] [place] [address] [place] Hemoglobin (Bld) [Mass/Vol] 14.5 g/dL Normal 13.0-17.0 [facility] Comment on above: Order Comment: Speci men Type: BLOOD SPECIMEN Ordering Facility: [facility] Address: [address] [place] [address] Performed By: #### 5 8410-2 #### [facility] CLIA [id number] [address] [place] [address] [place] MCH (RBC) [Entitic mass] 29.7 pg Normal 26.0-34.0 [facility] Comment on above: Order Comment: Speci men Type: BLOOD SPECIMEN Ordering Facility: [facility] Address: [address] [place] [address] Performed By: #### 5 8410-2 #### [facility] CLIA [id number] [address] [place] [address] [place] MCHC (RBC) [Mass/Vol] 33.7 g/dL Normal 30.5-36.0 [facility] Comment on above: Order Comment: Speci men Type: BLOOD SPECIMEN Ordering Facility: [facility] Address: [address] [place] [address] Performed By: #### 5 8410-2 #### [facility] CLIA [id number] [address] [place] [address] [place] MCV (RBC) [Entitic vol] 87.9 fL Normal 80.0-100.0 [facility] Comment on above: Order Comment: Speci men Type: BLOOD SPECIMEN Ordering Facility: [facility] Address: [address] [place] [address] Performed By: #### 5 8410-2 #### [facility] CLIA [id number] [address] [place] [address] [place] Nucleated RBC (Bld) [#/Vol] 10*3/uL Normal <0.01 [facility] Comment on above: Order Comment: Speci men Type: BLOOD SPECIMEN Ordering Facility: [facility] Address: [address] [place] [address] Performed By: #### 5 8410-2 #### [facility] CLIA [id number] [address] [place] [address] [place] Platelet mean volume (Bld) [Entitic vol] 10.4 fL Normal 9.0-12.7 [facility] Comment on above: Order Comment: Speci men Type: BLOOD SPECIMEN Ordering Facility: [facility] Address: [address] [place] [address] Performed By: #### 5 8410-2 #### [facility] CLIA [id number] [address] [place] [address] [place] Platelets (Bld) [#/Vol] 248 10*3/uL Normal 150-400 [facility] Comment on above: Order Comment: Speci men Type: BLOOD SPECIMEN Ordering Facility: [facility] Address: [address] [place] [address] Performed By: #### 5 8410-2 #### [facility] CLIA [id number] [address] [place] [address] [place] RBC (Bld) [#/Vol] 4.89 10*6/uL Normal 4.20-6.00 [facility] Comment on above: Order Comment: Speci men Type: BLOOD SPECIMEN Ordering Facility: [facility] Address: [address] [place] [address] Performed By: #### 5 8410-2 #### [facility] CLIA [id number] [address] [place] [address] [place] WBC (Bld) [#/Vol] 4.68 10*3/uL Normal 3.70-11.00 [facility] Comment on above: Order Comment: Speci men Type: BLOOD SPECIMEN Ordering Facility: [facility] Address: [address] [place] [address] Performed By: #### 5 8410-2 #### [facility] CLIA [id number] [address] [place] [address] [place] Comprehensive metabolic 2000 panelon 05-31-2023 Albumin [Mass/Vol] 4.5 g/dL Normal 3.9-4.9 [facility] Comment on above: Order Comment: Speci men Type: BLOOD SPECIMEN Ordering Facility: [facility] Address: [address] [place] [address] Performed By: #### 2 4331-1, 96439-2 #### [facility] CLIA [id number] [address] [place] [address] [place] ALP [Catalytic activity/Vol] 102 U/L Normal 38-113 [facility] Comment on above: Order Comment: Speci men Type: BLOOD SPECIMEN Ordering Facility: [facility] Address: [address] [place] [address] Performed By: #### 2 4331-1, #### [facility] CLIA [id number] [address] [place] [address] [place] ALT [Catalytic activity/Vol] 36 U/L Normal 10-54 [facility] Comment on above: Order Comment: Speci men Type: BLOOD SPECIMEN Ordering Facility: [facility] Address: [address] [place] [address] Performed By: #### 2 4331-1, #### [facility] CLIA [id number] [address] [place] [address] [place] Anion gap [Moles/Vol] 9 mmol/L Normal 9-18 [facility] Comment on above: Order Comment: Speci men Type: BLOOD SPECIMEN Ordering Facility: [facility] Address: [address] [place] [address] Performed By: #### 2 4331-1, 58948-2 #### [facility] CLIA [id number] [address] [place] [address] [place] AST [Catalytic activity/Vol] 30 U/L Normal 14-40 [facility] Comment on above: Order Comment: Speci men Type: BLOOD SPECIMEN Ordering Facility: [facility] Address: [address] [place] [address] Performed By: #### 2 4331-1, 20649-2 #### [facility] CLIA [id number] [address] [place] [address] [place] Bilirubin [Mass/Vol] 1.2 mg/dL Normal 0.2-1.3 [facility] Comment on above: Order Comment: Speci men Type: BLOOD SPECIMEN Ordering Facility: [facility] Address: [address] [place] [address] Performed By: #### 2 4331-1, #### [facility] CLIA [id number] [address] [place] [address] [place] Calcium [Mass/Vol] 9.5 mg/dL Normal 8.5-10.2 [facility] Comment on above: Order Comment: Speci men Type: BLOOD SPECIMEN Ordering Facility: [facility] Address: [address] [place] [address] Performed By: #### 2 4331-1, #### [facility] CLIA [id number] [address] [place] [address] [place] Chloride [Moles/Vol] 104 mmol/L Normal 97-105 [facility] Comment on above: Order Comment: Speci men Type: BLOOD SPECIMEN Ordering Facility: [facility] Address: [address] [place] [address] Performed By: #### 2 4331-1, #### [facility] CLIA [id number] [address] [place] [id number] [place] CO2 [Moles/Vol] 27 mmol/L Normal 22-30 [facility] Comment on above: Order Comment: Speci men Type: BLOOD SPECIMEN Ordering Facility: [facility] Address: [address] [place] [address] Performed By: #### 2 4331-1, 07981-3 #### [facility] CLIA [id number] [address] [place] [address] [place] Creatinine [Mass/Vol] 0.90 mg/dL Normal 0.73-1.22 [facility] Comment on above: Order Comment: Barbara bruce Type: BLOOD SPECIMEN Ordering Facility: [facility] Address: [address] [place] [address] Performed By: #### 2 4331-1, 72001-4 #### [facility] CLIA [id number] [facility] [place] [address] [facility] [place] Creatinine and Glomerular filtration rate.predicted panel (S/P/Bld) 125 mL/min/1.73m??? Normal >=60 [facility] Comment on above: Order Comment: Barbara bruce Type: BLOOD SPECIMEN Ordering Facility: [facility] Address: [address] [place] [address] Result Comment: Kirstin mated Glomerular Filtration Rate (eGFR) is calculated using the 2020 CKD-EPI creatinine equation. This equation utilizes serum creatinine, sex, and age as parameters. The creatinine assay has traceable calibration to isotope dilution-mass spectrometry. Refer to KDIGO guidelines for clinical interpretation. In patients with unstable renal function, e.g. those with acute kidney injury, the eGFR may not accurately reflect actual GFR. Performed By: #### 2 4331-1, 25197-5 #### [facility] CLIA [id number] [address] [place] [address] [place] Glucose [Mass/Vol] 115 mg/dL High 74-99 [facility] Comment on above: Order Comment: Barbara bruce Type: BLOOD SPECIMEN Ordering Facility: [facility] Address: [address] [place] [address] Result Comment: The [place] [employer] (ADA) provides guidance for cutoff values for fasting glucose and random glucose. The ADA defines fasting as no caloric intake for at least 8 hours. Fasting plasma glucose results between 100 to 125 mg/dL indicate increased risk for diabetes (prediabetes). Fasting plasma glucose results greater than or equal to 126 mg/dL meet the criteria for diagnosis of diabetes. In the absence of unequivocal hyperglycemia, results should be confirmed by repeat testing. In a patient with classic symptoms of hyperglycemia or hyperglycemic crisis, random plasma glucose results greater than or equal to 200 mg/dL meet the criteria for diagnosis of diabetes. Reference: Standards of Medical Care in Diabetes 2016, [place] [employer]. Diabetes Care. 2016.39(Suppl 1). Performed By: #### 2 4331-1, #### [facility] CLIA [id number] [address] [place] [address] [place] Potassium [Moles/Vol] 4.3 mmol/L Normal 3.7-5.1 [facility] Comment on above: Order Comment: Speci men Type: BLOOD SPECIMEN Ordering Facility: [facility] Address: [address] [place] [address] Performed By: #### 2 433-, #### [facility] CLIA [id number] [address] [place] [address] [place] Protein [Mass/Vol] 7.1 g/dL Normal 6.3-8.0 [facility] Comment on above: Order Comment: Speci men Type: BLOOD SPECIMEN Ordering Facility: [facility] Address: [address] [place] [address] Performed By: #### 2 433-, #### [facility] CLIA [id number] [address] [place] [address] [place] Sodium [Moles/Vol] 140 mmol/L Normal 136-144 [facility] Comment on above: Order Comment: Speci men Type: BLOOD SPECIMEN Ordering Facility: [facility] Address: [address] [place] [address] Performed By: #### 2 433-, #### [facility] CLIA [id number] [address] [place] [id number] [place] Urea nitrogen [Mass/Vol] 9 mg/dL Normal 9-24 [facility] Comment on above: Order Comment: Speci men Type: BLOOD SPECIMEN Ordering Facility: [facility] Address: [address] [place] [address] Performed By: #### 2 4331-1, 71668-7 #### [facility] CLIA [id number] [address] [place] [address] [place] Lipid 1996 panelon 4 Cholesterol [Mass/Vol] 166 mg/dL Normal <200 [facility] Comment on above: Order Comment: Speci men Type: BLOOD SPECIMEN Ordering Facility: [facility] Address: [address] [place] [address] Result Comment: <200 mg/dL, Desirable 200-239 mg/dL, Borderline high >239 mg/dL, High Performed By: #### 2 4331-1, #### [facility] CLIA [id number] [address] [place] [address] [place] Cholesterol in HDL [Mass/Vol] 36 mg/dL Low >39 [facility] Comment on above: Order Comment: Barbara bruce Type: BLOOD SPECIMEN Ordering Facility: [facility] Address: [address] [place] [address] Result Comment: 40-5 9 mg/dL, Acceptable >59 mg/dL, High: Negative risk factor for coronary heart disease <40 mg/dL, Low: Positive risk factor for coronary heart disease Performed By: #### 2 4331-1, 85123-0 #### [facility] CLIA [id number] [address] [place] [address] [place] Cholesterol in LDL [Mass/Vol] 113 mg/dL High <100 [facility] Comment on above: Order Comment: Brenti men Type: BLOOD SPECIMEN Ordering Facility: [facility] Address: [address] [place] [address] Result Comment: <100 mg/dL, Optimal 100-129 mg/dL, Near optimal/above optimal 130-159 mg/dL, Borderline high 160-189 mg/dL, High >189 mg/dL, Very high Secondary prevention optimal LDL Cholesterol levels are recommended to be < 70 mg/dL Performed By: #### 2 4331-1, 60359-7 #### [facility] CLIA [id number] [address] [place] [address] [place] Cholesterol in LDL/Cholesterol in HDL [Mass ratio] 3.14 {ratio} High <2.54 [facility] Comment on above: Order Comment: Barbara bruce Type: BLOOD SPECIMEN Ordering Facility: [facility] Address: [address] [place] [address] Result Comment: Refe rence: 1. National Cholesterol Education Program ATP III Guideline At-A-Glance Quick Desk Reference: National Heart, Lung, and Blood [place]. National Institutes of Health. 2001: NIH Publication No. 01-3305. 2. An International Atherosclerosis Society position paper: global recommendations for the management of dyslipidemia: executive summary, Atherosclerosis. 2014: 232(2):410-413. Cut Points from the Lipid Research Clinic's Prevalence Study for ages 20 to 24 years can be located in the following reference: Expert Panel on Integrated Guidelines for Cardiovascular Health and Risk Reduction in Children and Adolescents: National Heart, Lung and Blood [place]. Pediatrics. 2011:128(Suppl 5):C872-511. Performed By: #### 2 4331-1, 57429-7 #### [facility] CLIA [id number] [address] [place] [address] [place] Cholesterol in VLDL [Mass/Vol] 17 mg/dL Normal <30 [facility] Comment on above: Order Comment: Barbara bruce Type: BLOOD SPECIMEN Ordering Facility: [facility] Address: [address] [place] [address] Performed By: #### 2 4331-1, 46441-8 #### [facility] IA [id number] [address] [place] [address] [place] Cholesterol non HDL [Mass/Vol] 130 mg/dL High <130 [facility] Comment on above: Order Comment: Barbara bruce Type: BLOOD SPECIMEN Ordering Facility: [facility] Address: [address] [place] [address] Result Comment: <130 mg/dL, Optimal 130-159 mg/dL, Near optimal/above optimal 160-189 mg/dL, Borderline high 190-219 mg/dL, High >219 mg/dL, Very high Secondary prevention optimal non HDL Cholesterol levels are recommended to be <100 mg/dL Performed By: #### 2 4331-1, #### [facility] CLIA [id number] [address] [place] [address] [place] Cholesterol.total/C holesterol in HDL [Mass ratio] 4.61 {ratio} Normal <5.10 [facility] Comment on above: Order Comment: Speci men Type: BLOOD SPECIMEN Ordering Facility: [facility] Address: [address] [place] [address] Performed By: #### 2 4331-1, #### [facility] CLIA [id number] [address] [place] [address] [place] FASTING TIME 11 hrs Normal [facility] Comment on above: Order Comment: Speci men Type: BLOOD SPECIMEN Ordering Facility: [facility] Address: [address] [place] [address] Performed By: #### 2 4331-1, #### [facility] CLIA [id number] [address] [place] [address] [place] Triglyceride [Mass/Vol] 84 mg/dL Normal <150 [facility] Comment on above: Order Comment: Speci men Type: BLOOD SPECIMEN Ordering Facility: [facility] Address: [address] [place] [address] Result Comment: <150 mg/dL, Normal 150-199 mg/dL, Borderline high 200-499 mg/dL, High >499 mg/dL, Very high Performed By: #### 2 4331-1, #### [facility] CLIA [id number] [address] [place] [address] [place] CNOVon 03-22-2023 CNOV Office Visit (PEDSWS ) DONELL SEXTON ([id number]) [birth year] M Date Time Provider Department 03/22/23 3:45 PM CAS MENDIOLA PEDSWTrudy During your visit today, we recorded the following information about you: Temperature Pulse Respiration Weight 98.4 degrees 88/minute 16/minute 109.1 kg Cas Mendiola MD 03/31/2023 10:12 AM Signed Donell Sexton is a 22-year-old male who presents to the office today with complaints of rash and pruritus present for 4 weeks. Rash is present on the upper extremities as well as the back and abdomen. Was seen in May 2022 with a diagnosis of scabies. Patient was treated with Elimite which resolved the rash rather quickly. ACTIVE PROBLEM LIST Raynaud's Syndrome Ventricular Septal Defect Psoriasis Closed Finn's Fracture of Right Thumb Decreased Range of Motion of Right Thumb PAST MEDICAL HISTORY Diagnosis Date Concussion 2015 Murmur Raynaud's disease Ventricular septal defect Dr. Mcbride PAST SURGICAL HISTORY Procedure Laterality Date PAST SURGICAL HISTORY OF Right 01/14/2020 thumb PAST SURGICAL HISTORY OF Right 08/22/2020 Right Thumb ALLERGIES Allergen Reactions Penicillins Hives 03/22/23 1547 Pulse: 88 Resp: 16 Temp: 36.9 ?C (98.4 ?F) TempSrc: Temporal Weight: 109.1 kg (240 lb 9.6 oz) GENERAL: alert and active in no apparent distress SKIN : Erythematous papular pustular lesions present in between the digits of the right and left hand. There are also discrete lesions present on the palms. Lesions are present around the wrist and on the volar surface of the arm. Additionally lesions are present on the abdomen and along the waist. ASSESSMENT/PLAN: 1. Scabies - ICD9: 133.0, ICD10: B86 (primary diagnosis) - PERMETHRIN 5 % TOPICAL CREAM 2. Encounter for immunization - ICD9: V03.89, ICD10: Z23 - TD VACCINE, AGE 7+ YR, 5 LF TETANUS (TENIVAC) I spent a total of 25 minutes on the date of the service which included preparing to see the patient, [id number] patient care, completing clinical documentation, obtaining and/or reviewing separately obtained history, performing a medically appropriate examination, counseling and educating the patient/family/caregive r, and ordering medications, tests, or procedures. Follow-up prn Cas Mendiola MD [facility] Allergies As of Date: 03/22/2023 Noted Allergy Reaction PENICILLINS 09/30/2003 4 - Hives Date Reviewed: 03/22/2023 Reviewed by: Lana Gibson LPN - Fully Assessed Reason for Visit: Pruritus [928] Cmt: X 4 weeks, using different lotions and soaps, not helping, whole body Primary Visit Diagnosis:Scabies [B86] Other Visit Diagnosis:Encounter for immunization [Z23] Order(s):TD VACCINE, AGE 7+ YR, 5 LF TETANUS (TENIVAC) [80816HUM] Order #: [id number] permethrin (ELIMITE) 5 % creamApply to the body once at bedtime and then rinse off/shower in the AM. Repeat a single treatment again in 2 weeks.Disp: 60 gRfl: 1 Prescriptions as of 03/31/2023 - FLUoxetine (PROZAC) 20 mg capsule Take 1 capsule by mouth every afternoon. - permethrin (ELIMITE) 5 % cream Apply to the body once at bedtime and then rinse off/shower in the AM. Repeat a single treatment again in 2 weeks. Medication notes this encounter ESCITALOPRAM 10 MG TABLET >> Lana Gibson LPN 03/22/2023 3:47 PM >> LANA GIBSON LPN Fri Mar 22, 2023 3:47 PM Not taking Problem List As Of Date 03/22/2023 Noted Resolved RAYNAUD'S SYNDROME [I73.00] 09/30/2003 VENTRICULAR SEPT DEFECT [Q21.0] 02/14/2005 Sever's apophysitis, left [M92.62] 09/03/2015 12/04/2017 Psoriasis [L40.9] 12/04/2017 Closed Finn's fracture of right thumb [S62.2*02/09/2020 Decreased range of motion of right thumb [M25.6*02/09/2020 Prescriptions ordered this encounter Disp Refills Start End PERMETHRIN 5 % TOPICAL CREAM 60 g 1 03/22/2023 04/05/2023 Sig: Apply to the body once at bedtime and then rinse off/shower in the AM. Repeat a single treatment again in 2 weeks. Medications Discontinued During This Encounter Prescriptions - loratadine-pseudoephedr ine ER (CLARITIN-D 12 HOUR) 5-120 mg per tablet (Discontinued) Take 1 tablet by mouth twice daily. - fluticasone (FLONASE ALLERGY RELIEF) 50 mcg/actuation nasal spray (Discontinued) Use 1 [place] in each nostril once daily. - escitalopram oxalate (LEXAPRO) 10 mg tablet (Discontinued) Take 1 tablet by mouth once daily. - permethrin (ELIMITE) 5 % cream (Discontinued) Apply to the body once at bedtime and then rinse off/shower in the AM. Repeat a single treatment again in 2 weeks. Encounter Status:Closed by CAS MENDIOLA on 03/31/23 [facility] Progress Noteon 12-18-2022 Crude Tester Authentication Interface Message Text Rasheeda Echocardiogram Report: Patient Name: Donell Sexton Date of : 2000 Date of Study: 10/22/2022 FINDINGS: SEGMENTAL ANATOMY: Levocardia (S,D,S). SYSTEMIC VEINS: Hepatic veins, and superior and inferior caval veins return to the right atrium; no persistent left superior caval vein. PULMONARY VEINS: Normal pulmonary venous return. ATRIA: Intact atrial septum; no atrial dilation. ATRIOVENTRICULAR VALVES: Mitral valve: No stenosis or regurgitation; no mitral valve prolapse. Tricuspid valve: No stenosis; physiologic low-velocity tricuspid regurgitation. VENTRICLES: Left ventricle: Normal size, wall thickness, and normal systolic function. Right ventricle: Qualitatively normal size, wall thickness, and systolic function. Very small (2-3 mm) sub aortic ventricular septal defect SEMILUNAR VALVES: Aortic valve: Tricommissural without stenosis or regurgitation; no subaortic stenosis; Pulmonic valve: No stenosis; physiologic low-velocity pulmonic regurgitation. GREAT ARTERIES: Normal main and branch pulmonary artery Left aortic arch with normal vessel branching No patent ductus arteriosus. No coarctation of the aorta. CORONARY ARTERIES: Normal origins, no aneurysms PERICARDIUM: No pericardial effusion. FINAL IMPRESSION: Very small sub aortic ventricular septal defect Normal [facility] 12 Lead EKG performed by [facility] on 12-14-2022 12 Lead EKG performed by [facility] [address] [place] [address] 12 Lead EKG performed by [facility] 12/14/22 1118 MR#: [id number] Acct: [id number] Name: DONELL SEXTON Rep #: [id number] : 2000 22 From: Marisol Covington NP HEALTH SAFETY ENGINEER-C Attending Dr: Marisol Covington NP-C Status: DEP A MB Ordering Dr: Marisol Covington NP HEALTH SAFETY ENGINEER-C Date: 12/14/22 [facility] [facility] Sex: M C Admitted: BMS/12 Lead EKG performed by [facility] ECG Report Interpretation ---Sinus Rhythm WITHIN NORMAL LIMITSElectronically signed on 12/17/2022 at 13:55 by Beau Vicente Software Version [id number] 12/17/22 1401 Date Marisol Covington NP HEALTH SAFETY ENGINEER-C CC: Dr. Cas Mendiola MD Date Dictated: 12/14/228 Date Transcribed: 12/14/221117 Skid Adzer: SOSA Signed Normal [facility] Cardiology Visit Reporton Cardiology Visit Report [facility] [address] [place] [address] OFFICE VISIT Date of Service: 12/14/22 MR#: [id number] Acct: [id number] Name: DONELL SEXTON Rep #: [id number] : 2000 Provider: CARLEE fernandes Age/Sex: 22/M Location: [facility] Status: Signed [facility] History of Present Illness Details: This is a pleasant 22-year-old who presents to the office today for a cardiovascular follow-up visit. 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 He was seen by supervisor carton and can supply Dr. Villafuerte on 12/05/2020. He does play football at the college level. From a cardiac standpoint, the patient is doing well. He denies any palpitations, chest pain, pressure or heaviness. He denies SOB, Orthopnea, and PND. He does not have bleeding issues; no blood in urine, stool or nosebleeds. He denies any decrease in energy level, myalgias, or claudication. He does not have edema, or sudden weight gain. He denies dizziness, lightheadedness, syncopal or near syncopal episodes, and headaches. Intake Vital Signs 11/16/21 15:01 12/14/22 11:32 Height 6 ft 6 ft Weight: 227 lb BMI 30.7 BP 135/83 H Blood Pressure Location Lt brachial Position Sitting Respiration 18 Pulse 66 Pulse Source Monitor Pulse Oximetry (%) 97 Intake Visit Reasons: 1 Y FU NEEDS EKG FOR FOOTBALL Ict Developer Required: No Is patient in pain?: No Allergies Penicillins Allergy (Intermediate, Verified 12/14/22 11:40) Hives Medications fluticasone propionate 50 mcg/actuation nasal spray,suspension 1 spray intranasal BID 11/16/20 [History Confirmed 12/14/22] loratadine 5 mg-pseudoephedrine ER 120 mg tablet,extended release,12hr 1 tab PO DAILY 11/16/20 [History Confirmed 12/14/22] fluoxetine 20 mg capsule 20 mg PO DAILY 12/14/22 [History Confirmed 12/14/22] [facility] Medical History Concussion ( 2015) Psoriasis Raynaud's syndrome VSD (ventricular septal defect) Surgical History History of thumb surgery (01/14/20) Social History Smoking Status: Never smoker second hand exposure: No alcohol intake: never substance use type: does not use caffeine: Yes Type: coffee Number of servings: 1 ROS Const Const: Negative for fatigue, weakness, fever(s), headache(s), chills, frequent falls, weight gain or weight loss Eyes Eyes: Negative for blind spots, loss of peripheral vision, transient loss of vision, blurry vision, change in vision, double vision, floaters or tunnel vision ENT ENT: Negative for headache(s), dizziness, Nosebleed/epistaxis, balance problems or neck pain Cardio Chest Pain: No Palpitations: No Edema: None Muscle aches with walking: None Resp Respiratory: Negative for SOB with activity, SOB at rest or SOB orthopnea SOB lying down GI GI: Negative nausea, vomiting, heartburn, bloating, vomiting blood/hematemesis, bright, red blood in stools or black,tarry stools Musc Musc: Negative for muscle aches/ myalgia, muscle weakness, joint pain or balance problems Neuro Neuro: Negative for dizziness, lightheadedness, near syncope, syncope, orthostatic symptoms, frequent falls, headache(s), weakness, blurry vision or double vision Bernardo Hematologic/Lymphatic: Negative for easy bleeding or easy bruising Endo Endo: Negative for fatigue Cardiology Exam Const Appearance: cooperative, healthy appearing, comfortable and no acute distress Nutritional Appearance: average body habitus and well nourished Orientation: alert, awake and oriented x3 Head Head: normal to inspection Ears: hearing grossly normal bilaterally Nose: external nose normal Face and Sinus: face symmetric Mouth: oral mucosae normal Eyes General: appearance normal, both eyes and all related structures Eyelids: eyelids normal EOM: EOM intact bilaterally Neck Neck: normal visual inspection and no JVD Carotids: normal carotid upstroke Chest Chest inspection: normal inspection of the chest, symmetric chest movement and normal respiratory effort; Negative cough Auscultation: Bilateral: Clear to Auscultation Cardio Rate: regular rate Rhythm: regular rhythm Heart sounds: S1 normal, S2 normal and murmur; Negative rub or gallop Murmur: Grade 4/6 and LLSB (with radiation to RSB) GI GI: normal to inspection Neuro General: patient alert, patient awake, patient oriented x3 and CN's II-XI intact bilaterally Skin Skin: no rashes or lesions noted Extremities Pulses: Normal: Right Posterior Tibial Pulse, Left Posterior Tibial Pulse, Right Radial Pulse and Left Radial Pulse Lower Extremity Edema: None: Bilateral (more content not included)... Normal [facility] Echo Completeon 10-22-2022 Echo Complete [facility] [address] [place] [address] Echo Complete 10/22/22 1209 MR#: [id number] Acct: [id number] Name: DONELL SEXTON Rep #: [id number] : 2000 21 From: Beau Vicente MD Attending Dr: Cas Vincent NP-C Status: REG CLI Ordering Dr: Cas Vincent HEALTH SAFETY ENGINEER HEALTH SAFETY ENGINEER-C Date: 10/22/22 Location: [facility] Sex: M C Admitted: Reason For Study: VSD Procedure This was a 2D Doppler, Color Flow transthoracic echocardiogram. Exam performed in department. Left Ventricle Normal LV size. Small higher muscular ventricular septal defect measuring 0.3 to 0.3 cm. Unchanged from previous. Left ventricular systolic function is normal. The estimated ejection fraction is 60 %. No regional wall motion abnormalities noted. Right Ventricle Normal RV size. Normal systolic function. Atria Normal left atrium. Normal right atrium. Mitral Valve Normal mitral valve. Tricuspid Valve Normal tricuspid valve. Mild tricuspid valve insufficiency. Pulmonary artery systolic pressure is 20 mmHg. Aortic Valve Normal aortic valve. Trisinus/trileaflet aortic valve. Pulmonic Valve Normal pulmonic valve. Great Vessels Normal aortic root. The pulmonary artery is normal size. Normal inferior vena cava. Pericardium/Pleural No pericardial effusion. MMode/2D Measurements Calculations LVIDd: 5.5 cm IVSd: 1.1 cm Ao root diam: 3.0 cm LVIDs: 3.9 cm LVPWd: 1.1 cm LA dimension: 4.5 cm RVDd: 3.9 cm FS: 29.1 % LAV(MOD-bp): 58.1 ml LVAd ap4: 40.4 cm2 SV(MOD-sp4): 79.4 ml LAV(MOD-bp) Indexed: 26.2 ml/m2 LVLd ap4: 8.8 cm LAV(MOD-sp2): 56.0 ml EDV(MOD-sp4): 149.2 ml LAV(MOD-sp4): 61.2 ml EDV(sp4-el): 157.0 ml LVAs ap4: 24.3 cm2 LVLs ap4: 7.0 cm ESV(MOD-sp4): 69.8 ml ESV(sp4-el): 71.6 ml EF(MOD-sp4): 53.2 % EF(sp4-el): 54.4 % SV(sp4-el): 85.4 ml LA A4 area: 20.6 cm2 RA A4 area: 17.9 cm2 Time Measurements MV dec time: 0.20 sec Doppler Measurements Calculations MV E max enrike: 71.3 cm/sec Lat Peak E' Enrike: 22.2 cm/sec Med Peak E' Enrike: 11.6 cm/sec MV A max enrike: 61.4 cm/sec E/E' lat: 3.2 E/E' med: 6.1 MV E/A: 1.2 MV V2 max: 79.1 cm/sec MV P1/2t max enrike: 79.1 cm/sec Ao V2 max: 147.4 cm/sec MV max P.5 mmHg MV P1/2t: 68.5 msec Ao max P.7 mmHg MV V2 mean: 43.2 cm/sec Ao V2 mean: 101.7 cm/sec MV mean P.88 mmHg MV dec slope: 337.9 cm/sec2 Ao mean P.7 mmHg MV V2 VTI: 26.8 cm MVA(P1/2t): 3.2 cm2 Ao V2 VTI: 33.0 cm AV (velocity ratio): 0.78 LV V1 max: 128.0 cm/sec PA V2 max: 204.0 cm/sec TR max enrike: 201.4 cm/sec LV V1 max P.6 mmHg PA V2 mean: 118.0 cm/sec TR max P.2 mmHg LV V1 mean P.0 mmHg PA V2 VTI: 35.0 cm LV V1 mean: 95.6 cm/sec LV V1 VTI: 25.6 cm ECHO/Echo Complete Interpretation Summary Normal LV size. Left ventricular systolic function is normal. The estimated ejection fraction is 60 %. Small higher muscular ventricular septal defect measuring 0.3 to 0.3 cm. Unchanged from previous. Pulmonary artery systolic pressure is 20 mmHg. Ordering Physician: Cas Vincent Referring Physician: Cas Vincent Performed By: Chema Graham RCS 10/22/22 1416 Date Beau Vicente MD CC: HEALTH SAFETY ENGINEERChristyC Cas Vincent; Dr. Cas Mendiola MD Date Dictated: 10/22/22 1209 Date Transcribed: 10/22/22 141 Skid Adzer: Signed [facility] XR Finger - right AP and Lat eral and obliqueon 07-05-2020 IMPRESSION: Postsurgical change. No complication. Skid Adzer: PSCB Transcribe Date/Time: Jul 05 2020 9:33A Dictated by : MATTY VINCENT MD This examination was interpreted and the report reviewed and electronically signed by: MATTY VINCENT MD on Jul 05 2020 9:36AM [facility] DIVISION OF RADIOLOGY * * *Final Report* * * DATE OF EXAM: Jul 05 2020 9:28AM WOX [id number] - XR DIGIT 3V FRONTAL/LAT/OBL RT / PROCEDURE REASON: Skier's thumb, right, initial encounter * * * * Physician Interpretation * * * * Right thumb radiograph HISTORY: 19 years old Clinical information: Skier's thumb, right, initial encounter Hx of prior surgery, Pt fell x 6 days ago with pain at the CMC and MCP joints of the right thumb. TECHNIQUE: Images: XR DIGIT 3V FRONTAL/LAT/OBL RT Comparison: March 15, 2020 and additional prior exams. RESULT: Findings: No fracture or dislocation is evident. No acute fracture or dislocation. Postsurgical change involving the base of the first metacarpal with associated expansion of the base of the first metacarpal with callus extending along the palmar aspect of the first metacarpal from the base to the mid diaphysis. No soft tissue abnormality identified. DIVISION OF RADIOLOGY Provider, [facility] - 07/05/2020 * * *Final Report* * * DATE OF EXAM: Jul 05 2020 9:28AM WOX [id number] - XR DIGIT 3V FRONTAL/LAT/OBL RT / PROCEDURE REASON: Skier's thumb, right, initial encounter * * * * Physician Interpretation * * * * Right thumb radiograph HISTORY: 19 years old Clinical information: Skier's thumb, right, initial encounter Hx of prior surgery, Pt fell x 6 days ago with pain at the CMC and MCP joints of the right thumb. TECHNIQUE: Images: XR DIGIT 3V FRONTAL/LAT/OBL RT Comparison: March 15, 2020 and additional prior exams. RESULT: Findings: No fracture or dislocation is evident. No acute fracture or dislocation. Postsurgical change involving the base of the first metacarpal with associated expansion of the base of the first metacarpal with callus extending along the palmar aspect of the first metacarpal from the base to the mid diaphysis. No soft tissue abnormality identified. IMPRESSION IMPRESSION: Postsurgical change. No complication. Skid Adzer: JAYE Transcribe Date/Time: Jul 05 2020 9:33A Dictated by : MATTY VINCENT MD This examination was interpreted and the report reviewed and electronically signed by: MATTY VINCENT MD on Jul 05 2020 9:36AM EST [facility] Radiology Study observation (narrative) [facility] XR Finger - right AP and Lat eral and obliqueOrdered By: Ccf Provider on 07-05-2020 [facility] XR DIGIT 2V PA/LAT RTon XR DIGIT 2V PA/LAT RT Final Report DATE OF EXAM: Jan 14 2020 3:50PM AWX [id number] - XR DIGIT 2V PA/LAT RT / PROCEDURE REASON: Closed reduction percutaneous pinning right thumb Physician Interpretation EXAMINATION: XR DIGIT 2V PA/LAT RT Date of Examination: 01/14/2020 HISTORY: Right hand, 1st digit closed reduction, percutaneous pinning. Done in [place] Closed reduction percutaneous pinning right thumb. TECHNIQUE: XR DIGIT 2V PA/LAT RT Laterality: Right Number of different views (projections): 4 M: XB_1 COMPARISON: 08/05/2018 digital radiographs RESULT: Intraoperative fluoroscopic images of percutaneous pinning with 3 pins of the proximal right thumb fracture. Alignment appears satisfactory. Please see full operative report for further details. IMPRESSION: Intraoperative fluoroscopic examination. Skid Adzer: [facility] Transcribe Date/Time: Jan 14 2020 3:56P Dictated by : GREG CLEMENT MD This examination was interpreted and the report reviewed and electronically signed by: JASON CHO MD on Jan 14 2020 5:00PM EST Normal [facility] CNPN Telephone (AGPOB1) DONELL SEXTON ([id number]) 2 M Date Time Provider Department 01/11/20 ОЛЬГА ONOFRE JR AGPOB1 During your visit today, we recorded the following information about you: Hoda Dee Dee 01/11/2020 9:10 AM Signed ----- Message from Deepa Dempsey sent at 01/11/2020 8:13 AM EDT ----- Regarding: Orthopedics / Open Hand: Fracture Broken / Unable to Schedule Dx Subject Line Format: Orthopedics / [Provider Name or Open AND Body Part] / [Issue] Patient has been identified by name and Date of (Y/N): Yes Patient: Donell Sexton Date of : 2000 Previous Provider Seen: N/a - requesting Dr. Onofre Body Part(s) Identified: Right thumb Diagnosis/Reason For Visit: Fracture Reason for the call/escalation: Unable to Schedule Dx If reason for call/escalation is discharge from ED/ER or Hospital, which facility was the patient seen at: N/a Was an appointment scheduled (Y/N): No Person calling if other than patient: Baldemar Yañez Return call to if other than patient: Baldemar Yañez Best contact number: [phone] Deepa eDmpsey January 11, 2020 8:13 AM Hoda Lincoln 01/11/2020 9:11 AM Signed Spoke to patients father Baldemar and scheduled them 01/12/20 at 8:00am with Dr. Onofre at [facility]. Patients father is agreeable to location, date and time. Hoda Lincoln January 11, 2020 9:10 AM Allergies As of Date: 01/11/2020 Noted Allergy Reaction PENICILLINS 09/30/2003 4 - Hives Date Reviewed: 01/09/2020 Reviewed by: Sania Lehman LPN - Fully Assessed Reason for Visit: Appointment [186] Prescriptions as of 01/11/2020 Sig: CLARITIN-D 12 HOUR ORAL Take by mouth once daily. FLONASE SENSIMIST 27.5 MCG/AC* 2 sprays to each nostril once* KETOTIFEN 0.025 % (0.035 %) E* 1 drop to the affected eye ev* BROMPHENIRAMINE-PSEUDOE PHEDRI* Take 5-10 ml po q6h prn Patient not taking: Reported on 07/14/2018 NITROGLYCERIN 2 % TRANSDERMAL* Use as directed. Patient not taking: Reported on 07/24/2019 Problem List As Of Date 01/11/2020 Noted Resolved RAYNAUD'S SYNDROME [I73.00] 09/30/2003 VENTRICULAR SEPT DEFECT [Q21.0] 02/14/2005 Sever's apophysitis, left [M92.8] 09/03/2015 12/04/2017 Psoriasis [L40.9] 12/04/2017 Encounter Status:Closed by HODA LINCOLN on 01/11/20 Normal [facility] Clinical Summary: HMSPatient IDon 01-27-2018 WOP Invalid Interpretation Code [facility] Work Phone: Clinical Summary: Scanned RO S Summaryon 01-27-2018 endocrine ROS Denies Invalid Interpretation Code [facility] Work Phone: genitourinary review of systems, E&M Denies Invalid Interpretation Code [facility] Work Phone: Lymphocytes Auto #/vol (Bld) Denies Invalid Interpretation Code [facility] Work Phone: ROS cardiovascular E&M Denies Invalid Interpretation Code [facility] Work Phone: ROS ENT E&M Denies Invalid Interpretation Code [facility] Work Phone: ROS gastrointestinal E&M Denies Invalid Interpretation Code [facility] Work Phone: ROS general E&M Denies Invalid Interpretation Code [facility] Work Phone: ROS Musculoskeletal comments Pain,Joint Pain Invalid Interpretation Code [facility] Work Phone: ROS musculoskeletal E&M Complains Invalid Interpretation Code [facility] Work Phone: ROS neurological E&M Denies Invalid Interpretation Code [facility] Work Phone: ROS psychiatric E&M Denies Invalid Interpretation Code [facility] Work Phone: ROS pulmonary E&M Denies Invalid Interpretation Code [facility] Work Phone: ROS skin E&M Denies Invalid Interpretation Code [facility] Work Phone: Office Visit: New - 1st visi t with practice, Rm:on 01-27-2018 NEGATED: Highlighted rowProtein mass conc Done Invalid Interpretation Code [facility] Work Phone: Clinical Lists Update: Prelo ad Extendedon 01-22-2018 Protein mass conc T Invalid Interpretation Code [facility] Work Phone: Tobacco smoking status NHIS Tobacco smoking status NHIS Invalid Interpretation Code [facility] Work Phone: Clinical Summary: Data Submi tted by Patient in Portalon 01-22-2018 #DEP CHLDRN No Invalid Interpretation Code [facility] Work Phone: ASTHEHSZHOUS 3 floors Invalid Interpretation Code [facility] Work Phone: BROTHERS A/D My brother(s)' healt h history is unknown Invalid Interpretation Code [facility] Work Phone: DEBPCURRMED I am not taking any medications, vitamins or supplements. Invalid Interpretation Code [facility] Work Phone: DEP ALG LIST Penicillin,I don't h ave any food allergies.,Plant pollens (Hay Fever) Invalid Interpretation Code [facility] Work Phone: DEP DAD PMH High blood pressure, Obesity Invalid Interpretation Code [facility] Work Phone: DEP DRUG USE No Invalid Interpretation Code [facility] Work Phone: DEP EMPLOYER unemployed Invalid Interpretation Code [facility] Work Phone: DEP ETOH USE No Invalid Interpretation Code [facility] Work Phone: DEP EXERCISE Yes Invalid Interpretation Code [facility] Work Phone: DEP EXERTYP strength training, sports Invalid Interpretation Code [facility] Work Phone: DEP SH CSMO never smoker Invalid Interpretation Code [facility] Work Phone: DEP SH MAST single Invalid Interpretation Code [facility] Work Phone: DEPEXER FREQ 6 days per week Invalid Interpretation Code [facility] Work Phone: FATHER A/D Alive Invalid Interpretation Code [facility] Work Phone: [id number] 3 stories including basement Invalid Interpretation Code [facility] Work Phone: MOTHER A/D Alive Invalid Interpretation Code [facility] Work Phone: Protein mass conc Born with VSD, small hole in septum of heart (no restrictions) Raynaud's Syndrome Invalid Interpretation Code [facility] Work Phone: Protein mass conc I do not have any [facility] medical illnesses or conditions Invalid Interpretation Code [facility] Work Phone: [id number] Father Invalid Interpretation Code [facility] Work Phone: SISTER A/D My sister(s)' health history is unknown Invalid Interpretation Code [facility] Work Phone: SURGHX DENIE I have not had any surgeries Invalid Interpretation Code [facility] Work Phone: SWHOUTYPE house Invalid Interpretation Code [facility] Work Phone: Vital Signs Date Time Vital Sign Value Performing Clinician Facility 12-30-2024 09:02-0400 Diastolic blood pressure 101 mm[Hg] Dr. Cas Mendiola MD Work Phone: [facility] 12-30-2024 09:02-0400 Heart rate 78 /min Dr. Cas Mendiola MD Work Phone: 1([phone] [address] 12-30-2024 09:02-0400 Systolic blood pressure 153 mm[Hg] Dr. Cas Mendiola MD Work Phone: 0([phone])[phone] [place] [address] 12-30-2024 08:57-0400 Body height 182.[address] Cas Mendiola MD Work Phone: 7(066)317-241432 [place] [address] 12-30-2024 08:57-0400 Body mass index (BMI) [Ratio] 25.7 kg/m2 Dr. Csa Mendiola MD Work Phone: [phone])387-562632 [place] [address] 12-30-2024 08:57-0400 Body weight 86.[address] Cas Mendiola MD Work Phone: 4([phone])[phone] [place] [address] 12-30-2024 08:57-0400 Respiratory rate 16 /min Dr. Cas Mendiola MD Work Phone: [phone] [place] [address] 02-01-2024 08:13-0400 Body mass index (BMI) [Ratio] 31.36 kg/m2 Krislyn Aberegg PA Work Phone: [facility] 02-01-2024 08:13-0400 Body temperature 97.59 [degF] Krislyn Aberegg PA Work Phone: [facility] 02-01-2024 08:13-0400 Body weight 104.9 kg Krislyn Aberegg PA Work Phone: [facility] 02-01-2024 08:13-0400 Diastolic blood pressure 84 mm[Hg] Krislyn Aberegg PA Work Phone: [facility] 02-01-2024 08:13-0400 Heart rate 69 /min Krislyn Aberegg PA Work Phone: [facility] 02-01-2024 08:13-0400 Respiratory rate 16 /min Krislyn Aberegg PA Work Phone: [facility] 02-01-2024 08:13-0400 SaO2% (BldA) [Mass fraction] 98 % Krislyn Aberegg PA Work Phone: [facility] 02-01-2024 08:13-0400 Systolic blood pressure 128 mm[Hg] Krislyn Aberegg PA Work Phone: [facility] 03-22-2023 15:47-0500 Body temperature 98.4 [degF] Cas Mendiola MD Work Phone: [facility] 03-22-2023 15:47-0500 Body weight 109.14 kg Cas Mendiola MD Work Phone: [facility] 03-22-2023 15:47-0500 Heart rate 88 /min Cas Mendiola MD Work Phone: [facility] 03-22-2023 15:47-0500 Respiratory rate 16 /min Cas Mendiola MD Work Phone: [facility] 10-19-2021 10:47-0400 Body mass index (BMI) [Percentile] Per age and sex 89.58 % Cas Mendiola MD Work Phone: [facility] 10-19-2021 10:47-0400 Body temperature 97 [degF] Cas Mendiola MD Work Phone: [facility] 10-19-2021 10:47-0400 Body weight 94.26 kg Cas Mendiola MD Work Phone: [facility] 10-19-2021 10:47-0400 Heart rate 74 /min Cas Mendiola MD Work Phone: [facility] 10-19-2021 10:47-0400 Respiratory rate 14 /min Cas Mendiola MD Work Phone: [facility] NEGATED: Highlighted [id number] 15:19-0400 BMI (Body Mass Index) 22.43 kg/m2 Deepa Veronica WEIGHT INSPECTOR [facility] Work Phone: NEGATED: Highlighted [id number] 15:19-0400 BP Diastolic 81 mm[Hg] Deepa Diesch WEIGHT INSPECTOR [facility] Work Phone: NEGATED: Highlighted [id number] 15:19-0400 BP Diastolic 93 mm[Hg] Deepa Diesch WEIGHT INSPECTOR [facility] Work Phone: NEGATED: Highlighted [id number] 15:19-0400 BP Systolic 145 mm[Hg] Deepa Diesch WEIGHT INSPECTOR [facility] Work Phone: NEGATED: Highlighted [id number] 15:19-0400 BP Systolic 144 mm[Hg] Deepa Diesch WEIGHT INSPECTOR [facility] Work Phone: NEGATED: Highlighted [id number] 15:19-0400 Height 172.72 cm Deepa Diesch WEIGHT INSPECTOR [facility] Work Phone: NEGATED: Highlighted [id number] 15:19-0400 Height 173 cm Deepa Diesch WEIGHT INSPECTOR [facility] Work Phone: NEGATED: Highlighted [id number] 15:19-0400 Pulse (Heart Rate) 59 /min Deepa Diesch WEIGHT INSPECTOR [facility] Work Phone: NEGATED: Highlighted [id number] 15:19-0400 Weight 66.68 kg Deepa Diesch WEIGHT INSPECTOR [facility] Work Phone: NEGATED: Highlighted [id number] 15:19-0400 Weight 67 kg Deepa Diesch WEIGHT INSPECTOR [facility] Work Phone: Encounters Encounter Date Encounter Type Care Provider Facility Start: 12-31-2024 End: 12-31-2024 Chart abstracting Britton Cam APRN.[employer]KER Work Phone: [facility] Start: 12-30-2024 End: 12-30-2024 Follow-up encounter Britton Cam APRN.[employer] Work Phone: [facility] Comment on above: ED Follow Up ([place] [facility] 12/28/2024) Start: 12-30-2024 End: 12-30-[address] Cas Mendiola MD Work Phone: [facility] Start: 12-30-2024 End: 12-30-2024 Patient encounter procedure Cas Vincent HEALTH SAFETY ENGINEER-C [facility] Work Phone: Start: 12-28-2024 End: 12-28-2024 Emergency department patient visit BRITTON CAM Facility:[id number] Start: 02-01-2024 End: 02-01-2024 ambulatory BRITTON CAM Facility:[facility] Start: 02-01-2024 End: 02-01-2024 Patient encounter procedure Trupti Zuñiga PA Work Phone: [facility] Comment on above: Acute non-recurrent sinusitis, unspecified location (Primary Dx) Start: 05-31-2023 End: 05-31-2023 ambulatory BRITTON CAM Facility:[facility] Start: 03-22-2023 End: 03-22-2023 ambulatory CAS MENDIOLA Facility:[facility] Start: 03-22-2023 End: 03-22-2023 Patient encounter procedure Cas Mendiola MD Work Phone: [facility] Comment on above: Scabies (Primary Dx) ; Encounter for immunization Start: 12-14-2022 End: 12-14-2022 ambulatory Marisol Covington Facility:[facility] Start: 10-25-2022 ambulatory Cas Mendiola Facility:[facility] Start: 10-25-2022 Non-patient / Non-visit Dr. Marilyn Mendiola Work Phone: [facility] Start: 10-22-2022 ambulatory Cas Mendiola Facility:[facility] Start: 10-22-2022 Non-patient / Non-visit Dr. Marilyn Mendiola Work Phone: [facility] Start: 10-22-2022 End: 10-22-[address] Cas Mendiola Work Phone: [facility] Work Phone: Start: 10-22-2022 End: 10-22-[address] Cas Mendiola Work Phone: [facility] Start: 10-19-2021 Refill Cas Mendiola MD Work Phone: [facility] Comment on above: Refill Request Start: 10-19-2021 End: 10-19-2021 Patient encounter procedure Cas Mendiola MD Work Phone: [facility] Comment on above: Acute maxillary sinu sitis, recurrence not specified (Primary Dx); Seasonal allergic rhinitis due to pollen; Anxious mood Start: 08-28-2021 ambulatory Cas Mendiola MD Work Phone: [facility] Comment on above: Allergy medicine Start: 07-05-2020 End: 07-05-2020 Subsequent hospital visit by physician [facility] Work Phone: Radiology Comment on above: Skier's thumb, right , initial encounter [S63.641A] Start: 01-27-2018 End: 01-27-2018 Patient encounter procedure Maicol Park MD Work Phone: [facility] Work Phone: Procedures Date Procedure Procedure Detail Performing Clinician Start: 12-30-2024 Hemoglobin A1c/Hemoglobin.total in Blood [facility] Provider Start: 05-01-2021 Adult depression screening assessment Cas Mendiola MD Work Phone: Start: 07-05-2020 Radex fingr minimum 2 views Cas Mendiola MD Work Phone: Start: 01-27-2018 End: 01-27-2018 Adolescent tobacco screening was negative - non user Maicol Park MD Work Phone: Plan of Treatment Date Care Activity Detail Author Start: 03-22-2033 Urine microalbumin profile DTaP,Tdap,Td Vaccine (8 - Td or Tdap) [facility] Start: 01-11-2025 Influenza vaccination Influenza Vaccine (#1) [facility] Start: 12-30-2024 Evaluation of diagnostic study results [facility] Start: 01-12-2024 Influenza vaccination Influenza Vaccine (#1) [facility] Start: 04-13-2023 Urine microalbumin profile DTAP,TDAP,TD (7 - Td or Tdap) [facility] Start: 01-11-2023 Covid-19 Vaccine ( season) Covid-19 Vaccine ( season) [facility] Start: 01-11-2023 Influenza vaccination Influenza Vaccine (#1) [facility] Start: 05-13-2022 Depression Assessment Depression Assessment [facility] Start: 05-01-2022 Adult depression screening assessment DEPRESSION SCREENING [facility] Start: 01-11-2022 Influenza vaccination INFLUENZA (Season Ended) [facility] Start: 06-05-2021 COVID-19 VACCINE (3 - Booster for Pfizer series) COVID-19 VACCINE (3 - Booster for Pfizer series) [facility] Start: 10-28-2019 Depression Screening Depression Screening [facility] Start: 10-28-2019 HIV SCREENING HIV SCREENING [facility] Start: 10-28-2019 HIV screening HIV Screening [facility] Start: 01-27-2018 End: 01-27-2018 Appointment Appointment [facility] Work Phone: Start: 01-27-2018 End: 01-27-2018 Mri any jt lower extrem w/o contrast matrl MRI right knee without contrast [facility] Work Phone: Start: 01-27-2018 End: 01-27-2018 Radiologic exam knee complete 4/more views XR KNEE 4+ VWS-RT [facility] Work Phone: Start: 2017 Meningococcal B Vaccine (1 of 2 - Standard) Meningococcal B Vaccine (1 of 2 - Standard) [facility] Start: 2017 Meningococcal B Vaccine: Consider Based On Risk (1 of 2 - Patient Seeks Protection) Meningococcal B Vaccine: Consider Based On Risk (1 of 2 - Patient Seeks Protection) [facility] Start: 10-28-2015 PEDS TO ADULT TRANSITION ANNUAL ASSESSMENT PEDS TO ADULT TRANSITION ANNUAL ASSESSMENT [facility] Start: 2013 PEDS TO ADULT TRANSITION INITIAL DISCUSSION PEDS TO ADULT TRANSITION INITIAL DISCUSSION [facility] Start: 10-28-2011 MENINGOCOCCAL B: Consider based on risk (1 of 2 - Risk Bexsero 2-dose series) MENINGOCOCCAL B: Consider based on risk (1 of 2 - Risk Bexsero 2-dose series) [facility] Aldosterone [Mass/vo lume] in Serum or Plasma [facility] Catecholamines [Moles/volume] in Plasma [facility] Hemoglobin A1c/Hemoglobin.total in Blood [facility] Magnesium measurement [facility] Patient Education \cps-sql1\CPS_ PtEducatio n\CDC_FALL_PREVENTION.pd f, \cps-sql1\CPS_PtEducatio n\htn.pdf [facility] Work Phone: Renin [Enzymatic activity/volume] in Plasma [facility] T4 free measurement [facility] Thyroid stimulating hormone measurement [facility] Heart [facility] Renal artery [facility] Immunizations Immunization Date Immunization Notes Care Provider Fa [facility] 03-22-2023 TD(adult) unspecifie d formulation Cas Mendiola MD Work Phone: [facility] Work Phone: 03-22-2023 tetanus and diphther ia toxoids, adsorbed, preservative free, for adult use (5 Lf of tetanus toxoid and 2 Lf of diphtheria toxoid) Cas Mendiola MD Work Phone: [facility] 12-04-2017 meningococcal polysaccharide (groups A, C, Y and W-135) diphtheria toxoid conjugate vaccine (MCV4P) Cas Mendiola MD Work Phone: [facility] 11-06-2016 Human Papillomavirus 9-valent vaccine Cas Mendiola MD Work Phone: [facility] 06-04-2016 influenza, injectabl e, quadrivalent, preservative free Cas Mendiola MD Work Phone: [facility] Work Phone: 06-04-2016 influenza virus vacc ine, unspecified formulation Cas Mendiola MD Work Phone: [facility] 12-06-2015 Human Papillomavirus 9-valent vaccine Cas Mendiola MD Work Phone: [facility] 02-18-2014 influenza, injectabl e, quadrivalent, preservative free Cas Mendiola MD Work Phone: [facility] 04-13-2013 influenza virus vacc ine, unspecified formulation Cas Mendiola MD Work Phone: [facility] Work Phone: 04-13-2013 Meningococcal, MCV4, unspecified conjugate formulation(groups A, C, Y and W-135) Cas Mendiola MD Work Phone: [facility] Work Phone: 04-13-2013 tetanus toxoid, redu ana diphtheria toxoid, and acellular pertussis vaccine, adsorbed Cas Mendiola MD Work Phone: [facility] Work Phone: 04-11-2012 influenza virus vacc ine, unspecified formulation Cas Mendiola MD Work Phone: [facility] Work Phone: 05-10-2011 influenza virus vacc ine, unspecified formulation Cas Mendiola MD Work Phone: [facility] Work Phone: 05-11-2010 influenza virus vacc ine, unspecified formulation Cas Mendiola MD Work Phone: [facility] Work Phone: 03-08-2009 novel influenza-H1N1 -09, all formulations Cas Mendiola MD Work Phone: [facility] Work Phone: 02-23-2009 influenza virus vacc ine, unspecified formulation Cas Mendiola MD Work Phone: [facility] Work Phone: 03-18-2008 influenza virus vacc ine, unspecified formulation Cas Mendiola MD Work Phone: [facility] Work Phone: 10-24-2007 diphtheria, tetanus toxoids and acellular pertussis vaccine Cas Mendiola MD Work Phone: [facility] Work Phone: 10-24-2007 measles, mumps and rubella virus vaccine Cas Mendiola MD Work Phone: [facility] Work Phone: 10-24-2007 poliovirus vaccine, inactivated Cas Mendiola MD Work Phone: [facility] Work Phone: 10-24-2007 varicella virus vaccine Cas Mendiola MD Work Phone: [facility] Work Phone: 03-13-2007 influenza virus vacc ine, unspecified formulation Cas Mendiola MD Work Phone: [facility] Work Phone: 03-06-2006 influenza virus vacc ine, unspecified formulation Cas Mendiola MD Work Phone: [facility] Work Phone: 04-20-2005 influenza virus vacc ine, unspecified formulation Cas Mendiola MD Work Phone: [facility] 11-19-2004 measles, mumps and rubella virus vaccine Cas Mendiola MD Work Phone: [facility] Work Phone: 02-18-2004 influenza virus vacc ine, unspecified formulation Cas Mendiola MD Work Phone: [facility] Work Phone: 12-13-2003 haemophilus influenz ae type b vaccine, HbOC conjugate Cas Mendiola MD Work Phone: [facility] Work Phone: 08-16-2003 poliovirus vaccine, inactivated Cas Mendiola MD Work Phone: [facility] Work Phone: 08-16-2003 varicella virus vaccine Cas Mendiola MD Work Phone: [facility] Work Phone: 03-04-2003 diphtheria, tetanus toxoids and acellular pertussis vaccine Cas Mendiola MD Work Phone: [facility] Work Phone: 03-04-2003 haemophilus influenz ae type b vaccine, HbOC conjugate Cas Mendiola MD Work Phone: [facility] Work Phone: 03-04-2003 influenza virus vacc ine, unspecified formulation Cas Mendiola MD Work Phone: [facility] Work Phone: 11-19-2002 hepatitis B vaccine, pediatric or pediatric/adolescent dosage Cas Mendiola MD Work Phone: [facility] Work Phone: 11-19-2002 pneumococcal conjuga te vaccine, 7 valent Cas Mendiola MD Work Phone: [facility] Work Phone: 06-01-2002 influenza virus vacc ine, unspecified formulation Cas Mendiola MD Work Phone: [facility] Work Phone: 06-01-2002 pneumococcal conjuga te vaccine, 7 valent Cas Mendiola MD Work Phone: [facility] Work Phone: 04-29-2002 diphtheria, tetanus toxoids and acellular pertussis vaccine Cas Mendiola MD Work Phone: [facility] Work Phone: 04-29-2002 influenza virus vacc ine, unspecified formulation Cas Mendiola MD Work Phone: [facility] Work Phone: 04-29-2002 pneumococcal conjuga te vaccine, 7 valent Cas Mendiola MD Work Phone: [facility] Work Phone: 02-26-2002 diphtheria, tetanus toxoids and acellular pertussis vaccine Cas Mendiola MD Work Phone: [facility] Work Phone: 02-26-2002 haemophilus influenz ae type b vaccine, HbOC conjugate Cas Mendiola MD Work Phone: [facility] Work Phone: 02-26-2002 pneumococcal conjuga te vaccine, 7 valent Cas Mendiola MD Work Phone: [facility] Work Phone: 02-26-2002 poliovirus vaccine, inactivated Cas Mendiola MD Work Phone: [facility] Work Phone: 2001 diphtheria, tetanus toxoids and acellular pertussis vaccine Cas Mendiola MD Work Phone: [facility] Work Phone: 2001 haemophilus influenz ae type b vaccine, HbOC conjugate Cas Mendiola MD Work Phone: [facility] Work Phone: 2001 poliovirus vaccine, inactivated Cas Mendiola MD Work Phone: [facility] Work Phone: 2001 hepatitis B vaccine, pediatric or pediatric/adolescent dosage Cas Mendiola MD Work Phone: [facility] Work Phone: 2001 hepatitis B vaccine, pediatric or pediatric/adolescent dosage Cas Mendiola MD Work Phone: [facility] Work Phone: No information available. Deepa Martin [facility] Work Phone: Payers Date Payer Category Payer Self-pay [id number] 2019 Private Health Insurance [employer] [id number] 2019 Unknown [employer] PPO [id number] 2019-Present [phone] [address] [place] [address] PPO [id number] 2019 Unknown [employer] PPO [id number] 2019-Present [phone] [address] [place] [address] PPO [id number] 2019 Unknown [id number] 2016 Unknown [id number] Unknown [id number] Unknown [id number] Unknown [id number] Unknown [id number] Social History Date Type Detail Facility Start: 01-27-2018 End: 01-27-2018 Assertion Unknown if ever smoked [facility] Work Phone: Start: 05-16-2022 End: 12-14-2022 Tobacco smoking status NHIS Never smoked tobacco [facility] Start: 03-15-2020 End: 05-01-2021 Alcohol intake Current non-drinker of alcohol (finding) [facility] Start: 2001 Sex Assigned At Male [facility] Start: 12-04-2017 End: 05-16-2022 Tobacco use and exposure Smokeless tobacco non-user [facility] Start: 05-16-2022 End: 03-22-2023 History of Social function [facility] Start: 05-16-2022 End: 03-22-2023 Tobacco use panel [facility] Start: 04-13-2012 Adult Depression Screening Assessment 0 [facility] Start: 01-16-2020 Gender identity Identifies as male gender (finding) [facility] Start: 02-01-2024 Alcoholic beverage intake Current drinker of alcohol (finding) [facility] Start: 05-29-2023 Alcohol Comment social Pinaenrikejojo [facility] Start: 06-04-2020 End: 07-04-2020 Exposure to SARS-CoV-2 (event) Not sure [facility] Medical Equipment Procedure Code Equipment Code Equipment Original Text Equipment Identifier Dates [id number]-[id number] Implant - [id number] Start: 08-22-2020 Comment on above: Description: Forefoo t InternalBrace Implant System, PEEK Wire Pam .045in Stainless Steel 6in Fixation Smooth [place] Both - [id number] Start: 01-14-2020 Functional Status Date Assessment Result Facility 11-09-2014 Are you deaf, or do you have serious difficulty hearing No 11/09/2014 8:30 AM EDT Gregor Zhu Cma No [facility] 11-09-2014 Are you blind, or do you have serious difficulty seeing, even when wearing glasses No 11/09/2014 8:30 AM EDT Gregor Zhu Cma No [facility] 11-09-2014 Do you have serious difficulty walking or climbing stairs No 11/09/2014 8:30 AM EDT Gregor Zhu Cma No [facility] 11-09-2014 Do you have difficul ty dressing or bathing No 11/09/2014 8:30 AM EDGregor Foster Cma No [facility] Mental Status Date Assessment Result Facility 11-09-2014 Because of a physica l, mental, or emotional condition, do you have serious difficulty concentrating, remembering, or making decisions No 11/09/2014 8:30 AM EDT Gregor Zhu Cma No [facility] Clinical Notes 09-03-2015 to 12-30-2024 Chasity Olivarez LPN - 12/30/2024 9:30 AM Trupti Lopez PA - 02/01/2024 8:18 AM Cas Elizondo MD - 03/22/2023 3:45 PM ESTTelephone Encounter - Keesha Koch RN - 10/19/2021 12:38 PM EDT Note Date & Type Note Facility 12-30-2024 Note HNO ID: [id number] Author: CHASITY OLIVAREZ LPN Service: ? Author Type: Licensed Nurse Type: Progress Notes Filed: 12/30/2024 09:32 Note Text: ED Follow-Up Note Provider Action / FYI: Call completed by: ADELSO Patient seen in ED: In Network ED Contact made with Patient: No, left message. Chasity Olivarez LPN December 30, 2024 9:32 AM [facility] 12-30-2024 History of Presen t illness Narrative ED Follow-Up Note Provider Action / FYI: Call completed by: ADLESO Patient seen in ED: In Network ED Contact made with Patient: No, left message. Chasity Olivarez LPN December 30, 2024 9:32 AM documented in this encounter [facility] 12-30-2024 Note Patient Outreach (AG INTMLW) DONELL SEXTON ([id number]) 2 M Date Time Provider Department 12/30/24 [facility] CAMINTMLW During your visit today, we recorded the following information about you: Chasity Olivarez LPN 12/30/2024 9:32 AM Signed ED Follow-Up Note Provider Action / FYI: Call completed by: ADELSO Patient seen in ED: In Network ED Contact made with Patient: No, left message. Chasity Olivarez LPN December 30, 2024 9:32 AM Allergies As of Date: 12/30/2024 Noted Allergy Reaction PENICILLINS 09/30/2003 4 - Hives Date Reviewed: 12/28/2024 Reviewed by: Marcelle Shah, JANIS - Fully Assessed Reason for Visit: ED Follow Up [973] Cmt: [place] [facility] 12/28/2024 Prescriptions as of 12/30/2024 - FLUoxetine (PROZAC) 20 mg capsule Take 1 capsule by mouth every afternoon. Problem List As Of Date 12/30/2024 Noted Resolved RAYNAUD'S SYNDROME [I73.00] 09/30/2003 VENTRICULAR SEPT DEFECT [Q21.0] 02/14/2005 Sever's apophysitis, left [M92.62] 09/03/2015 12/04/2017 Psoriasis [L40.9] 12/04/2017 Closed Finn's fracture of right thumb [S62.2*02/09/2020 Decreased range of motion of right thumb [M25.6*02/09/2020 Generalized anxiety disorder [F41.1] 05/29/2023 Encounter Status:Closed by CHASITY OLIVAREZ on 12/30/24 [facility] 02-01-2024 Note HNO ID: [id number] Author: TRUPTI ZUÑIGA PA Service: ? Author Type: Physician Corporate Analyst Type: Progress Notes Filed: 02/01/2024 08:20 Note Text: This note was created using NoteWriter. Subjective Donell Sexton is a 23 year old male. HPI 23-year-old male presents for nasal congestion, sinus pressure, sinus pain. Patient states he has been having sinus symptoms for about 3 weeks. He denies any fevers. No cough. No chest pain or shortness of breath. No sick contacts. States he is concerned it may be a sinus infection. He has been using Claritin and Daniela with minimal improvement. PAST MEDICAL HISTORY Diagnosis Date Concussion 2014 Generalized anxiety disorder Murmur Raynaud's disease Ventricular septal defect Dr. Mcbride PAST SURGICAL HISTORY Procedure Laterality Date PAST SURGICAL HISTORY OF Right 01/14/2020 thumb PAST SURGICAL HISTORY OF Right 08/22/2020 Right Thumb ALLERGIES Penicillins MEDICATIONS FLUoxetine (PROZAC) 20 mg capsule Take 1 capsule by mouth every afternoon. doxycycline (VIBRA-TABS) 100 mg tablet Take 1 tablet by mouth two times a day for 7 days. FAMILY HISTORY Problem Relation Age of Onset other (bipolar type 5) Mother Hypertension Father Hypertension Maternal Grandfather Diabetes Maternal Grandfather mggm other (heart disease) Maternal Grandfather paternal side Diabetes Maternal Uncle Diabetes Maternal great-grandmother Social History Tobacco Use Smoking status: Never Smokeless tobacco: Never Vaping Use Vaping status: Never Used Substance Use Topics Alcohol use: Yes Comment: social Drug use: No Review of Systems Constitutional: Negative for chills and fever. HENT: Positive for congestion, sinus pressure and sinus pain. Negative for sore throat. Respiratory: Negative for cough and shortness of breath. Gastrointestinal: Negative for diarrhea and vomiting. Neurological: Positive for headaches. Objective BP 128/84 Pulse 69 Temp 36.4 ?C (97.6 ?F) (Tympanic) Resp 16 Wt 104.9 kg (231 lb 4.2 oz) SpO2 98% BMI 31.36 kg/m? Physical Exam Vitals and nursing note reviewed. Constitutional: General: He is not in acute distress. Appearance: Normal appearance. He is not toxic-appearing. HENT: Right Ear: Tympanic membrane and ear canal normal. Left Ear: Tympanic membrane and ear canal normal. Nose: Mucosal edema present. Right Sinus: Maxillary sinus tenderness and frontal sinus tenderness present. Left Sinus: Maxillary sinus tenderness and frontal sinus tenderness present. Mouth/Throat: Mouth: Mucous membranes are moist. Eyes: Conjunctiva/sclera: Conjunctivae normal. Cardiovascular: Rate and Rhythm: Normal rate and regular rhythm. Pulmonary: Effort: Pulmonary effort is normal. Breath sounds: Normal breath sounds. Skin: General: Skin is warm and dry. Neurological: Mental Status: He is alert. Assessment and Plan ASSESSMENT/PLAN: 1. Acute non-recurrent sinusitis, unspecified location - ICD9: 461.9, ICD10: J01.90 - Will begin treatment with Doxycycline - The patient should also be given OTC decongestants prn for the first 5-7 days of treatment. - Supportive care with plenty of fluids, rest, and analgesia prn. Diagnosis and treatment plan were discussed and questions were answered to the patient's satisfaction. Pt acknowledged understanding of concepts and follow up plan. Specific signs and symptoms that would indicate the need for higher level of care were discussed in detail warranting prompt ER evaluation. JANETTE Shields [facility] 02-01-2024 History of Presen t illness Narrative This note was created using NoteWriter. Subjective Donell Sexton is a 23 year old male. HPI 23-year-old male presents for nasal congestion, sinus pressure, sinus pain. Patient states he has been having sinus symptoms for about 3 weeks. He denies any fevers. No cough. No chest pain or shortness of breath. No sick contacts. States he is concerned it may be a sinus infection. He has been using Claritin and Daniela with minimal improvement. PAST MEDICAL HISTORY Diagnosis Date 2014 Generalized anxiety disorder Murmur Raynaud's disease Ventricular septal defect Dr. Mcbride PAST SURGICAL HISTORY Procedure Laterality Date PAST SURGICAL HISTORY OF Right 01/14/2020 thumb PAST SURGICAL HISTORY OF Right 08/22/2020 Right Thumb ALLERGIES Penicillins MEDICATIONS FLUoxetine (PROZAC) 20 mg capsule Take 1 capsule by mouth every afternoon. doxycycline (VIBRA-TABS) 100 mg tablet Take 1 tablet by mouth two times a day for 7 days. FAMILY HISTORY Problem Relation Age of Onset other (bipolar type 5) Mother Hypertension Father Hypertension Maternal Grandfather Diabetes Maternal Grandfather mggm other (heart disease) Maternal Grandfather paternal side Diabetes Maternal Uncle Diabetes Maternal great-grandmother Social History Tobacco Use Smoking status: Never Smokeless tobacco: Never Vaping Use Vaping status: Never Used Substance Use Topics Alcohol use: Yes Comment: social Drug use: No Review of Systems Constitutional: Negative for chills and fever. HENT: Positive for congestion, sinus pressure and sinus pain. Negative for sore throat. Respiratory: Negative for cough and shortness of breath. Gastrointestinal: Negative for diarrhea and vomiting. Neurological: Positive for headaches. Objective BP 128/84 Pulse 69 Temp 36.4 C (97.6 F) (Tympanic) Resp 16 Wt 104.9 kg (231 lb 4.2 oz) SpO2 98% BMI 31.36 kg/m Physical Exam Vitals and nursing note reviewed. Constitutional: General: He is not in acute distress. Appearance: Normal appearance. He is not toxic-appearing. HENT: Right Ear: Tympanic membrane and ear canal normal. Left Ear: Tympanic membrane and ear canal normal. Nose: Mucosal edema present. Right Sinus: Maxillary sinus tenderness and frontal sinus tenderness present. Left Sinus: Maxillary sinus tenderness and frontal sinus tenderness present. Mouth/Throat: Mouth: Mucous membranes are moist. Eyes: Conjunctiva/sclera: Conjunctivae normal. Cardiovascular: Rate and Rhythm: Normal rate and regular rhythm. Pulmonary: Effort: Pulmonary effort is normal. Breath sounds: Normal breath sounds. Skin: General: Skin is warm and dry. Neurological: Mental Status: He is alert. Assessment and Plan ASSESSMENT/PLAN: 1. Acute non-recurrent sinusitis, unspecified location - ICD9: 461.9, ICD10: J01.90 - Will begin treatment with Doxycycline - The patient should also be given OTC decongestants prn for the first 5-7 days of treatment. - Supportive care with plenty of fluids, rest, and analgesia prn. Diagnosis and treatment plan were discussed and questions were answered to the patient's satisfaction. Pt acknowledged understanding of concepts and follow up plan. Specific signs and symptoms that would indicate the need for higher level of care were discussed in detail warranting prompt ER evaluation. JANETTE Shields documented in this encounter [facility] 03-22-2023 History of Presen t illness Narrative Donell Sexton is a 22-year-old male who presents to the office today with complaints of rash and pruritus present for 4 weeks. Rash is present on the upper extremities as well as the back and abdomen. Was seen in May 2022 with a diagnosis of scabies. Patient was treated with Elimite which resolved the rash rather quickly. ACTIVE PROBLEM LIST Raynaud's Syndrome Ventricular Septal Defect Psoriasis Closed Finn's Fracture of Right Thumb Decreased Range of Motion of Right Thumb PAST MEDICAL HISTORY Diagnosis Date Concussion 2014 Murmur Raynaud's disease Ventricular septal defect Dr. Mcbride PAST SURGICAL HISTORY Procedure Laterality Date PAST SURGICAL HISTORY OF Right 01/14/2020 thumb PAST SURGICAL HISTORY OF Right 08/22/2020 Right Thumb ALLERGIES Allergen Reactions Penicillins Hives 03/22/23 1547 Pulse: 88 Resp: 16 Temp: 36.9 C (98.4 F) TempSrc: Temporal Weight: 109.1 kg (240 lb 9.6 oz) GENERAL: alert and active in no apparent distress SKIN : Erythematous papular pustular lesions present in between the digits of the right and left hand. There are also discrete lesions present on the palms. Lesions are present around the wrist and on the volar surface of the arm. Additionally lesions are present on the abdomen and along the waist. ASSESSMENT/PLAN: 1. Scabies - ICD9: 133.0, ICD10: B86 (primary diagnosis) - PERMETHRIN 5 % TOPICAL CREAM 2. Encounter for immunization - ICD9: V03.89, ICD10: Z23 - TD VACCINE, AGE 7+ YR, 5 LF TETANUS (TENIVAC) I spent a total of 25 minutes on the date of the service which included preparing to see the patient, [id number] patient care, completing clinical documentation, obtaining and/or reviewing separately obtained history, performing a medically appropriate examination, counseling and educating the patient/family/caregiver, and ordering medications, tests, or procedures. Follow-up prn Cas Mendiola MD [facility] Department of Pediatrics, [facility] documented in this encounter [facility] 03-22-2023 Note HNO ID: [id number] Author: Cas Mendiola MD Service: ? Author Type: Physician Type: Progress Notes Filed: 03/31/2023 10:12 AM Note Text: Donell Sexton is a 22-year-old male who presents to the office today with complaints of rash and pruritus present for 4 weeks. Rash is present on the upper extremities as well as the back and abdomen. Was seen in May 2022 with a diagnosis of scabies. Patient was treated with Elimite which resolved the rash rather quickly. ACTIVE PROBLEM LIST Raynaud's Syndrome Ventricular Septal Defect Psoriasis Closed Finn's Fracture of Right Thumb Decreased Range of Motion of Right Thumb PAST MEDICAL HISTORY Diagnosis Date Concussion 2015 Murmur Raynaud's disease Ventricular septal defect Dr. Mcbride PAST SURGICAL HISTORY Procedure Laterality Date PAST SURGICAL HISTORY OF Right 01/14/2020 thumb PAST SURGICAL HISTORY OF Right 08/22/2020 Right Thumb ALLERGIES Allergen Reactions Penicillins Hives 03/22/23 1547 Pulse: 88 Resp: 16 Temp: 36.9 ?C (98.4 ?F) TempSrc: Temporal Weight: 109.1 kg (240 lb 9.6 oz) GENERAL: alert and active in no apparent distress SKIN : Erythematous papular pustular lesions present in between the digits of the right and left hand. There are also discrete lesions present on the palms. Lesions are present around the wrist and on the volar surface of the arm. Additionally lesions are present on the abdomen and along the waist. ASSESSMENT/PLAN: 1. Scabies - ICD9: 133.0, ICD10: B86 (primary diagnosis) - PERMETHRIN 5 % TOPICAL CREAM 2. Encounter for immunization - ICD9: V03.89, ICD10: Z23 - TD VACCINE, AGE 7+ YR, 5 LF TETANUS (TENIVAC) I spent a total of 25 minutes on the date of the service which included preparing to see the patient, [id number] patient care, completing clinical documentation, obtaining and/or reviewing separately obtained history, performing a medically appropriate examination, counseling and educating the patient/family/caregiver, and ordering medications, tests, or procedures. Follow-up prn Cas Mendiola MD [facility] Department of Pediatrics, [facility] 10-19-2021 Miscellaneous Notes Patient notified and voiced understanding Keesha Koch RN Left message to call the office Keesha Koch RN Did discuss this in the office. The alternative is Flonase 2 sprays to each nostril once daily which would be an increase in therapy. If this fails then we can submit for prior authorization. Update in 2 weeks. Cas Mendiola MD Looks like insurance will not cover the Azelastine- fluticasone. Just purchase OTC or looks like will cover Flonase? Frank Douglas RN documented in this encounter [facility] 10-19-2021 History of Presen t illness Narrative 20-year-old male presents to the office today with complaints of headache, sore throat and nasal congestion. Symptoms of been present greater than 1 week. Over the last several weeks the patient does have nasal congestion along with sneezing and nasal pruritus. No fevers are present. No cough, chest pain or shortness of breath. ACTIVE PROBLEM LIST Raynaud's Syndrome Ventricular Septal Defect Psoriasis Closed Finn's Fracture of Right Thumb Decreased Range of Motion of Right Thumb PAST MEDICAL HISTORY Diagnosis Date Concussion 2014 Murmur Raynaud's disease Ventricular septal defect Dr. Mcbride PAST SURGICAL HISTORY Procedure Laterality Date PAST SURGICAL HISTORY OF Right 01/14/2020 thumb PAST SURGICAL HISTORY OF Right 08/22/2020 Right Thumb ALLERGIES Allergen Reactions Penicillins Hives 10/19/21 1047 Pulse: 74 Resp: 14 Temp: 36.1 C (97 F) TempSrc: Temporal Weight: 94.3 kg (207 lb 12.8 oz) GENERAL: alert and active in no apparent distress, nontoxic-appearing HEAD: Normocephalic, atraumatic EYES: EOM's intact, conjunctiva clear, no drainage EARS: External auditory canals are free of lesions bilaterally. Tympanic membranes are intact bilaterally without evidence of fluid in the middle ear space NOSE/SINUSES : Nares normal without discharge OROPHARYNX:moist mucous membranes, tonsils without hypertrophy and no exudates present NECK: Negative for anterior or posterior cervical adenopathy CARDIOVASCULAR : Regular Rate and Rhythm. Capillary refill is less than 1 second. LUNGS: clear to auscultation, excellent air exchange, resonant to percussion, easy respirations without grunting/flaring/retracting. EXTREMITIES: No clubbing, cyanosis, or edema. NEUROLOGICAL : Muscle tone normal and Normal age appropriate gait SKIN : normal color, no jaundice or rash and Normal skin turgor Impression: (J01.00) Acute maxillary sinusitis, recurrence not specified (primary encounter diagnosis) (J30.1) Seasonal allergic rhinitis due to pollen (F41.9) Anxious mood Plan: Office Visit on 10/19/21 azelastine-fluticasone 137-50 mcg/spray spry: Recommend to use until end of February cefdinir (OMNICEF) 300 mg capsule escitalopram oxalate (LEXAPRO) 10 mg tablet Education given. Course of illness/condition and rationale for treatment discussed. I spent a total of 25 minutes on the date of the service which included preparing to see the patient, [id number] patient care, completing clinical documentation, obtaining and/or reviewing separately obtained history, performing a medically appropriate examination, counseling and educating the patient/family/caregiver and ordering medications, tests, or procedures. Follow-up prn Cas Mendiola MD [facility] Department of Pediatrics, [facility] documented in this encounter [facility] 09-20-2021 Miscellaneous Notes The following approved medication requests have been transmitted electronically. Signed Prescriptions Disp Refills loratadine-pseudoephedrine ER (CLARITIN-D 12 HOUR) 5-120 mg per tablet 180 tablet 3 Sig: Take 1 tablet by mouth twice daily. RACHELE: No fluticasone (FLONASE ALLERGY RELIEF) 50 mcg/actuation nasal spray 3 Each 3 Sig: Use 1 [place] in each nostril once daily. RACHELE: No Adelaida Kaur Ma Patient's request for medication is as follows Signed Prescriptions Disp Refills loratadine-pseudoephedrine ER (CLARITIN-D 12 HOUR) 5-120 mg per tablet 180 tablet 3 Sig: Take 1 tablet by mouth twice daily. RACHELE: No fluticasone (FLONASE ALLERGY RELIEF) 50 mcg/actuation nasal spray 3 Each 3 Sig: Use 1 [place] in each nostril once daily. RACHELE: No Cas Mendiola MD Last [facility]: greater than one year ago Verify RX Benefits Completed Last medication refill date: 11/07/20 Requesting 90 day supply Retail pharmacy updated: Completed Patient aware RX will be sent to pharmacy. No need to notify patient. Immunizations due: MENINGOCOCCAL B: Consider based on risk(1 of 2 - Risk Bexsero 2-dose series) Never done HIV SCREENING Never done COVID-19 VACCINE(3 - Booster for Pfizer series) due on 06/05/2021 Josesito Arevalo RN documented in this encounter [facility] 07-05-2020 History of Presen t illness Narrative Radiology Service Progress Note PATIENT NAME: Donell Sexton DATE OF SERVICE: July 05, 2020 TIME: 9:19 AM PATIENT IDENTITY VERIFICATION COMPLETED USING TWO (2) IDENTIFIERS: Name and Date of confirmed by patient verbally. FALL SCREENING: Has the patient had 2 falls in the last year or 1 fall with injury or currently using an Ambulatory Assistive Device (Walker, Cane, Wheelchair, Crutches, etc.)? No PATIENT GENDER DATA: Male PATIENT RELEVANT IMPLANT DATA REVIEWED: Yes RADIOLOGY DEPARTMENT: General X-ray: Exam(s) Completed: Upper Extremity X-Ray(s): Fingers/Thumb, right : PERIPHERAL IV DATA: Not applicable SIGNED BY: RT Damián July 05, 2020 9:19 AM documented in this encounter [facility] 09-03-2015 History of Past i llness Narrative Problem Noted Date Resolved Date Sever's apophysitis, left 09/03/20152017 documented as of this encounter (statuses as of 09/20/2021) [facility]04[facility] History of Past illness Narrative* Problem Noted Date Resolved Date Sever's apophysitis, left 09/03/20152017 documented as of this encounter (statuses as of 10/19/2021) [facility] History of Past illness Narrative* Problem Noted Date Resolved Date Sever's apophysitis, left 09/03/20152017 documented as of this encounter (statuses as of 10/25/2021) [facility] History of Past illness Narrative* Problem Noted Date Diagnosed Date Resolved Date Sever's apophysitis, left 09/03/2015 documented as of this encounter (statuses as of 03/31/2023) [facility] Diagnosis Seasonal allergic rhinitis due to pollen [facility] [place] [facility] Diagnosis Acute maxillary sinusitis, recurrence not specified- Primary Seasonal allergic rhinitis due to pollen Anxious mood Anxiety state, unspecified documented in [facility]No [facility] Work Phone: Evaluation note* Diagnosis Scabies- Primary Encounter for immunization Need for other specified prophylactic vaccination against single bacterial disease documented in this encounter [facility] note* Diagnosis Acute non-recurrent sinusitis, unspecified location- Primary documented in this encounter [facility] note* Diagnosis Skier's thumb, right, initial encounter documented in this encounter [facility] note* Diagnosis Onset Date Resolution Status Admit Date Chest pain acute December 30, 8:33am Dizziness acute December 30 025 8:33am VSD (ventricular septal defect) chronic December 30 8:33am [facility] Work Phone: Reason for referral (narrative)No reason for referral information availableU[facility] Work Phone: Instructions Instruction Description Start Date Completed Advance Directives No Advanced Directives Records FoundDocuments on File Type Date Recorded Patient Clark Driver Expl anation Advance Directive(s) 08/22/2020 11:21 AM Advance Directive(s) 01/14/2020 1:24 PM Assessments There may be information available, but it has not been provided by the sender. Review of System There may be information available, but it has not been provided by the sender. Family History No Family History Records Found Relationship Condition Age at Onset Recorded Date/T paul Not Specified Cardiac disease Unknown mother Bipolar disorder Unknown father Hypertension Unknown grandfather Diabetes mellitus Unknown Hypertension Unknown Summary Purpose Chief Complaint and Reason for Visit Chief Complaint VSD Amb Documentation Chief Complaint Admit Date S/P UNION 12/27December 30, 2024 8: 33am Reason for Visit Admit Date Chest pain December 30, 2024 8: 33am Dizziness December 30, 2024 8: 33am VSD (ventricular septal defect) December 122024 8:33am Additional Source Comments (unrecognized sect ion and content) No Status Records FoundNo Status Records FoundNo Status Records FoundNo Status Records FoundNo Status Records FoundNo Status Records FoundNo Status Records Found INFORMATION SOURCE (unrecogn ized section and content) DATE CREATED AUTHOR 01/11/2020 [facility] DATE CREATED AUTHOR AUTHOR'S ORGANIZ ATION 10/29/2020 [facility] DATE CREATED AUTHOR AUTHOR'S ORGANIZ ATION 12/17/2022 [facility] DATE CREATED AUTHOR AUTHOR'S ORGANIZ ATION 12/19/2022 [facility] DATE CREATED AUTHOR AUTHOR'S ORGANIZ ATION 02/03/2024 [facility] DATE CREATED AUTHOR AUTHOR'S ORGANIZ ATION 12/30/2024 [facility] DATE CREATED AUTHOR AUTHOR'S ORGANIZ ATION 12/31/2024 [facility] Source Comments (unrecognize d section and content) In the event this informatio n is protected by the Federal Confidentiality of Alcohol and Drug Abuse Patient Records regulations: The Federal rules restrict any use of the information to criminally investigate or prosecute any alcohol or drug abuse patient.[facility] the event this information is protected by the Federal Confidentiality of Alcohol and Drug Abuse Patient Records regulations: The Federal rules restrict any use of the information to criminally investigate or prosecute any alcohol or drug abuse patient.[facility] the event this information is protected by the Federal Confidentiality of Alcohol and Drug Abuse Patient Records regulations: The Federal rules restrict any use of the information to criminally investigate or prosecute any alcohol or drug abuse patient.[facility] the event this information is protected by the Federal Confidentiality of Alcohol and Drug Abuse Patient Records regulations: The Federal rules restrict any use of the information to criminally investigate or prosecute any alcohol or drug abuse patient.[facility] the event this information is protected by the Federal Confidentiality of Alcohol and Drug Abuse Patient Records regulations: The Federal rules restrict any use of the information to criminally investigate or prosecute any alcohol or drug abuse patient.[facility] the event this information is protected by the Federal Confidentiality of Alcohol and Drug Abuse Patient Records regulations: The Federal rules restrict any use of the information to criminally investigate or prosecute any alcohol or drug abuse patient.[facility] the event this information is protected by the Federal Confidentiality of Alcohol and Drug Abuse Patient Records regulations: The Federal rules restrict any use of the information to criminally investigate or prosecute any alcohol or drug abuse patient.[facility] the event this information is protected by the Federal Confidentiality of Alcohol and Drug Abuse Patient Records regulations: The Federal rules restrict any use of the information to criminally investigate or prosecute any alcohol or drug abuse patient.[facility] Care Teams (unrecognized sec tion and content) Dot Net Developer Relationship Specialty Start Date End Date Cas Mendiola MD [address] [place] [address] PCP - General Pediatrics 06/05/11 Dot Net Developer Relationship Specialty Start Date End Date Cas Mendiola MD [address] [place] [id number] PCP - General Pediatrics 06/05/11 Dot Net Developer Relationship Specialty Start Date End Date Cas Mendiola MD [address] [place] [id number] PCP - General Pediatrics 06/05/11 Team Status: Active Member Role Status Dates Dr. Cas Mendiola MD Family Provider Active Dr. Cas Mendiola MD Primary Care Provider Active Team Status: Active Member Role Status Dates Dr. Cas Mendiloa MD Primary Care Provider Active Dr. Beau Vicente MD Attending Provider Active Team Status: Active Member Role Status Dates Dr. Cas Mendiola MD Primary Care Provider Active Cas Vincent NP, HEALTH SAFETY ENGINEER-C Attending Provider Active Team Status: Inactive Member Role Status Dates Dr. Cas Mendiola MD Primary Care Provider Active Cas Vincent HEALTH SAFETY ENGINEER, HEALTH SAFETY ENGINEER-C Attending Provider, Referring Pro vider Active Dot Net Developer Relationship Specialty Start Date End Date Cas Mendiola MD [address] [place] [address] PCP - General Pediatrics 06/05/11 Dot Net Developer Relationship Specialty Start Date End Date Britton Cam, SPRAY PAINTER HELPER.TOP COLLAR MAKER [address] [place] [address] PCP - General Internal Medicine 05/14/23 Dot Net Developer Relationship Specialty Start Date End Date Cas Mendiola MD [address], [place] [id number] PCP - General Pediatrics 06/05/11 05/13/23 Team Status: Active Member Role/Relationship Status Dates Dr. Cas Mendiola MD Family Provider Active Dr. Cas Mendiola MD Primary Care Provider Active Team Status: Inactive Member Role/Relationship Status Dates Dr. Cas Mendiola MD Primary Care Provider Active Start: December 30, 2024 End: December 30, 2024 Dr. Cas Mendiola MD Referring Provider Active S tart: December 30, 2024 End: December 30, 2024 Cas Vincent HEALTH SAFETY ENGINEER, HEALTH SAFETY ENGINEER-C Attending Provider Active S tart: December 30, 2024 End: December 30, 2024 Dot Net Developer Relationship Specialty Start Date End Date Britton Cam, SPRAY PAINTER HELPER.TOP COLLAR MAKER [address] [place] [id number] PCP - General Internal Medicine 05/14/23 Dot Net Developer Relationship Specialty Start Date End Date Britton Cma, SPRAY PAINTER HELPER.TOP COLLAR MAKER [address] [place] [phone] PCP - General Internal Medicine 05/14/23 Reason for Visit (unrecogniz ed section and content) Reason Comments Refill Request Reason Comments Sinus HAs, ST, nasal conge stion - green/yellow drainage, states has had bloody noses also. Ongoing x1week. Specialty Diagnoses / Procedures Referred By Contac t Referred To Contact Pediatrics / PEDIATRICS Diagnoses Abnormal CT of paranasal sinuses Sinuses Procedures OFFICE/OUTPATIENT ESTABLISHED MOD MDM 30-39 MIN 4C EST 30 Self Cas Mendiola MD [address] [phone] Referral ID Status Reason Start Date Expiration Date Visits Re quested Visits Authorized [id number] Closed 10/19/2021 05/12/2022 1 1 Reason Comments Pruritus X 4 weeks, using dif ferent lotions and soaps, not helping, whole body Reason Comments Sinus Problem Sinus congestion x 3 -4 weeks Specialty Diagnoses / Procedures Referred By Contac t Referred To Contact Radiology / RADIO GENERAL [facility] Diagnoses Main Lobby Procedures XR GENERAL 7 Cas Mendiola MD [address] [phone] [facility] [address] [place] [address] Referral ID Status Reason Start Date Expiration Date Visits Re quested Visits Authorized [id number] Closed 07/05/2020 10/03/2020 99 99 Reason Onset Date Comments ED Follow Up 12/28/2024 [place] [facility] 12/29/19 25 Goals (unrecognized section and content) Goals may be documented in a n alternate sectionGoals may be documented in an alternate section FOR RECORDS PERTAINING TO PATIENTS WHO ARE OR HAVE BEEN ENROLLED IN A CHEMICAL DEPENDENCY/SUBSTANCEABUSE PROGRAM, SOME INFORMATION MAY BE OMITTED. This clinical summary was aggregated from multiple sources. Caution should be exercised in using it in the provision of clinical care. This summary normalizes information from multiple sources, and as a consequence, information in this document may materially change the coding, format and clinical context of patient data. In addition, data may be omitted in some cases. CLINICAL DECISIONS SHOULD BE BASED ON THE PRIMARY CLINICAL RECORDS. [employer] provides no warranty or guarantee of the accuracy or completeness of information in this document.
--- NOTE | 2025-01-02 08:57 | ECHOD_ITS ---
Reason For Study Reason For Study: VSD Procedure This was a 2D Doppler, Color Flow transthoracic echocardiogram. Exam performed in department. Left Ventricle Normal LV size. Small high muscular VSD measuring 0.3 cm. Unchanged from previous. Tgot-pu-sglrm shunting noted. Left ventricular systolic function is normal. The left ventricular ejection fraction is 65 %. No regional wall motion abnormalities noted. Right Ventricle Normal RV size. Normal systolic function. Atria Normal left atrium. Normal right atrium. Mitral Valve Normal mitral valve. Tricuspid Valve Normal tricuspid valve. Aortic Valve Trisinus/trileaflet aortic valve. Pulmonic Valve Normal pulmonic valve. Great Vessels Normal aortic root. The pulmonary artery is normal size. Inferior vena cava collapse with respiration. Pericardium/Pleural No pericardial effusion. MMode/2D Measurements & Calculations LVIDd: 5.2 cm IVSd: 0.96 cm Ao root diam: 3.1 cm LVIDs: 3.8 cm LVPWd: 0.96 cm RVDd: 3.7 cm FS: 27.9 % LAV(MOD-bp): 60.2 ml LVAd ap4: 34.7 cm2 LVAd ap2: 38.2 cm2 LAV(MOD-bp) Indexed: 27.1 ml/m2 LVLd ap4: 8.4 cm LVLd ap2: 9.8 cm LAV(MOD-sp2): 50.5 ml EDV(MOD-sp4): 119.1 ml EDV(MOD-sp2): 123.5 ml LAV(MOD-sp4): 50.9 ml EDV(sp4-el): 121.5 ml EDV(sp2-el): 126.3 ml LVAs ap4: 17.9 cm2 LVAs ap2: 20.2 cm2 LVLs ap4: 6.5 cm LVLs ap2: 7.4 cm ESV(MOD-sp4): 41.8 ml ESV(MOD-sp2): 47.7 ml ESV(sp4-el): 41.9 ml ESV(sp2-el): 46.8 ml EF(MOD-sp4): 64.9 % EF(MOD-sp2): 61.4 % EF(sp4-el): 65.5 % SV(MOD-sp4): 77.2 ml SV(MOD-sp2): 75.8 ml SV(sp4-el): 79.6 ml SI(MOD-sp4): 34.8 ml/m2 SI(MOD-sp2): 34.2 ml/m2 LA A4 area: 16.2 cm2 LA dimension(2D): 4.0 cm RA A4 area: 10.8 cm2 TAPSE: 2.2 cm Time Measurements MV dec time: 0.20 sec Doppler Measurements & Calculations MV E max enrike: 74.0 cm/sec Lat Peak E' Enrike: 16.9 cm/sec Med Peak E' Enrike: 13.7 cm/sec MV A max enrike: 42.4 cm/sec E/E' lat: 4.4 E/E' med: 5.4 MV E/A: 1.7 Ao V2 max: 119.8 cm/sec LV V1 max: 81.2 cm/sec PA V2 max: 148.9 cm/sec Ao max P.7 mmHg LV V1 max P.6 mmHg Ao V2 mean: 72.2 cm/sec LV V1 mean P.3 mmHg Ao mean P.4 mmHg LV V1 mean: 53.4 cm/sec Ao V2 VTI: 19.1 cm LV V1 VTI: 16.3 cm AV (velocity ratio): 0.86 ECHO/Echo Complete Interpretation Summary Normal LV size. Left ventricular systolic function is normal. The left ventricular ejection fraction is 65 %. Small high muscular VSD measuring 0.3 cm. Unchanged from previous. Nupw-dy-hkug t shunting noted. Ordering Physician: Beau Vicente Referring Physician: Lisy Shoemaker Performed By: Chasity Cazares, ZAC, RVT
== END | disposition home or self-care (01) ==
LOC: CVS 08:43
PROVIDERS: PCP Nurse Practitioner Adult Health; Referring Provider Nurse Practitioner Family; Visit Provider Nurse Practitioner Family
DX: Q21.0 Ventricular septal defect (principal)
CPT/HCPCS: 93306

== ENCOUNTER → 2025-01-21 | Outpatient (CLI) | payer OTHER, SELFPAY ==
--- NOTE | 2025-01-21 08:49 | RDU_ITS ---
Reason For Study Reason For Study: Hypertension Right Renal Artery Left Renal Artery Right renal artery ostium 133.7/32.6 Left renal artery ostium 144.1/35.3 RSV/EDV. PSV/EDV. Right renal artery proximal 144.1/43 Left renal artery proximal PSV/EDV PSV/EDV. 146.7/37.8 . Right renal artery mid 117.6/40.8 Left renal artery mid 102.6/22.3 PSV/EDV. PSV/EDV . Right renal artery distal 113.2/36.4 Left renal artery distal 126.7/40.8 PSV/EDV. PSV/EDV. Right Renal Parenchyma Left Renal Parenchyma Upper Pole Medula 23.9/9.7 PSV/EDV. Left upper pole medulla 29.6/12.6 Right upper pole medulla EDR 0.4 . PSV/EDV . Right upper pole medulla R.I. 0.59 . Left upper pole medulla EDR 0.4 . Upper Juve Cortx 14.9/6.9 PSV/EDV. Left upper pole medulla R.I. 0.58 . Right upper pole cortex EDR 0.5 . UP Cortex 25.2/12 PSV/EDV. Right upper pole cortex R.I. 0.54 . Left upper pole cortex EDR 0.5 . Right lower Pole medulla 30.5/10.7 Left upper pole cortex R.I. 0.52 . PSV/EDV . Left lower Pole medulla 30.7/12 PSV/EDV . Right lower pole medulla EDR 0.3 . Left lower pole medulla EDR 0.4 . Right lower pole medulla R.I. 0.65 . Left lower pole medulla R.I. 0.61 . Lower Pole Cortex 24.8/12.1 PSV/EDV. Lower Pole Cortx 23/10.4 PSV/EDV. Right lower pole cortex EDR 0.5 . Left lower pole cortex EDR 0.5 . Right lower pole cortex R.I. 0.51 . Left lower pole cortex R.I. 0.55 . Right Renal Hilar Left Renal Hilar Right Hilar avg 52.6/22.5 PSV/EDV. LT Hilar avg 47.1/18.8 PSV/EDV . Right hilar acceleration time 30 m/sec. Left hilar acceleration time 20 m/sec. Right Renal Dimensions Left Renal Dimensions Right kidney size 11.77 cm . Left kidney size 11.93 cm . Right cortical dimension 2.10 cm . Left cortical dimension 2.09 cm . Aorta Proximal abdominal aorta 1.51 x 1.46 cm . Proximal abdominal aorta peak systolic velocity is 152.7 cm/sec . Distal abdominal aorta 1.30 x 1.28 cm . Distal abdominal aorta peak systolic velocity is 119.8 cm/sec . VL/Renal Artery Duplex Ultrasound Interpretation Summary Right renal artery patent with normal velocities and no evidence of stenosis. Left renal artery patent with normal velocities and no evidence of stenosis. Right renal vein patent. Left renal vein patent. Right kidney normal in size. Left kidney normal in size. Ordering Physician: Osei Vincent Referring Physician: Garett Tavarez MD Performed By: Aby Rhodes RVT
== END | disposition home or self-care (01) ==
LOC: CVS 08:48
PROVIDERS: PCP Family Medicine; Referring Provider Nurse Practitioner Family; Visit Provider Nurse Practitioner Family
DX: Q21.0 Ventricular septal defect (principal); R07.9 Chest pain, unspecified; R42 Dizziness and giddiness
CPT/HCPCS: 93975

== ENCOUNTER → 2025-02-10 | Outpatient (CLI) | payer OTHER, SELFPAY | END | disposition home or self-care (01) | LOC: CVS 10:55 | PROVIDERS: PCP Family Medicine; Referring Provider Nurse Practitioner Family; Visit Provider Nurse Practitioner Family | DX: I10 Essential (primary) hypertension (principal); R42 Dizziness and giddiness; R07.9 Chest pain, unspecified; Q21.0 Ventricular septal defect | CPT/HCPCS: 93017 ==